=== PATIENT | female | born 1980 | race African-American/Black ===

== ENCOUNTER 2017-01-08 11:46 | Emergency (ER) | payer SELFPAY ==
[2017-01-08 11:50] VITALS: BP 141/76
--- NOTE | 2017-01-08 12:32 | RAD ---
Examination: 3 views of the right ankle History: History of right ankle pain, fall Comparison: None available Findings: The ankle mortise appears intact. There is no acute fracture identified. Mild soft tissue swelling identified lateral to the lateral malleolus. Impression: 1. No acute osseous findings. 2. Mild soft tissue swelling identified lateral to the lateral malleolus likely soft tissue injury.
--- NOTE | 2017-01-08 12:44 | PHYS DOC ---
General Chief Complaint: ANKLE PROBLEM Stated Complaint: RT FOOT PAIN Time Seen by MD: 11:54 Source: patient Exam Limitations: no limitations Problems: History of Present Illness Initial Comments Patient is a 36-year-old female who comes to the ED complaining of right ankle pain. Patient states that 2 weeks ago she rolled her ankle causing swelling and pain. She's been icing and elevating taking Tylenol and ibuprofen and her symptoms have improved greatly. 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 She says when she works it swells and the swelling is improved somewhat overnight with icing and elevating. She's frustrated that it is taking so long to get better and she is concerned that she might be injuring it further. She denies numbness tingling weakness or radiating symptoms she denies any other injuries suffered from the initial incident. Onset: other (2 weeks ago) Severity: severe Pain/Injury Location: right ankle Method of Injury: twisted Modifying Factors: worse with jarring, worse with movement, improves with rest Past Medical History Medical History: no pertinent history Surgical History: noncontributory Social History Smoker: cigarettes Alcohol: occasionally Drugs: marijuana Review of Systems Constitutional: denies chills, denies fever Respiratory: denies cough, denies shortness of breath Cardiovascular: denies chest pain, denies palpitations Gastrointestinal: denies nausea, denies vomiting Musculoskeletal: see HPI Psychiatric/Neurological: see HPI Physical Exam General Appearance: WD/WN, no apparent distress Neck: non-tender, supple Cardiovascular/Respiratory: normal peripheral pulses, no respiratory distress Back: no CVA tenderness, no vertebral tenderness Ankles: left ankle non-tender, left ankle normal inspection, left ankle normal range of motion, left ankle no evidence of injury, right ankle other (swelling noted at the lateral ankle, tenderness noted at the deltoid ligament, anterior talo-fibular ligament, and the posterior calcaneofibular ligaments. No bony tenderness no palpable deformity negative drawer extremity is neurovascularly intact.) Feet: bilateral foot non-tender, bilateral foot normal inspection, bilateral foot normal range of motion, bilateral foot no evidence of injury Neurologic/Tendon: normal sensation, normal motor functions, normal tendon functions, responds to pain, no evidence tendon injury Psychiatric: alert, oriented x 3 Skin: normal color, warm/dry Orders, Labs, Meds Right ankle: No acute osseous abnormality. Images reviewed by Dr. Padilla. I discussed the treatment plan, I discussed wearing air splint while working only. [id number] medications and ankle exercises to decrease swelling and improve range of motion given as well. Patient encouraged to stop smoking she expressed agreement and understanding of the treatment plan. Departure Time of Disposition: 12:42 Disposition: 01 HOME, SELF-CARE Diagnosis: right ankle sprain Condition: GOOD Patient Instructions: Ankle Sprain, Acute, with Phase II Rehab-JUAN Gutierrez - Routine Care for Injuries, [id number] Additional Instructions: JUAN, see handout. Wear the air splint while working to prevent further injury. [id number] Tylenol or ibuprofen as needed. Follow-up with your doctor in 2 weeks for recheck. Return to the ED with new or changing symptoms. GWYN PADILLA DO Jan 08, 2017 12:44
[2017-01-11] MEDS ORDERED: SULF1TAB24 PO (13:28)
[2017-01-11] MEDS ORDERED: MAGN400T22 PO (13:28)
== END 2017-01-08 12:50 | disposition home or self-care (01) ==
LOC: ER 11:46
DX: S93.401A Sprain of unspecified ligament of right ankle, initial encounter (principal); F17.210 Nicotine dependence, cigarettes, uncomplicated; F12.10 Cannabis abuse, uncomplicated; X58.XXXA Exposure to other specified factors, initial encounter; Y93.89 Activity, other specified; Y99.8 Other external cause status; Y92.89 Other specified places as the place of occurrence of the external cause
CPT/HCPCS: 29515; 73610; 99284-25

== ENCOUNTER 2017-01-10 12:47 | Observation (INO) | payer OTHER ==
[~2017-01-10] VITALS: Ht 157.5 cm; Wt 60.9 kg
--- NOTE | 2017-01-10 13:12 | ED.ADGEN ---
Past History Past Medical History: No Pertinent History Past Surgical History: Other Alcohol Use: Occasionally Drug Use: Marijuana Adult General Chief Complaint Chief Complaint Multiple complaints HPI HPI Patient is a 36 year old and [place] female who presents with multiple complaints. She states that she's been having left-sided flank pain that goes into her abdomen she's been having nausea vomiting, headache for the last 2 days. She states moving makes her pain in her back worse she states the headache comes and goes but is always there. She states she's never had headaches like this as a pressure sensation throughout her entire head. She states she's felt nauseated is not been able to do much eating or drinking over the last several days. She still complains of fever for the last 2 days. She states her pillow is wet when she's sleeping. Review of Systems Review of Systems Constitutional: Denies fever or chills [] Eyes: Denies change in visual acuity, redness, or eye pain [] HENT: Denies nasal congestion or sore throat [] Respiratory: Denies cough or shortness of breath [] Cardiovascular: No additional information not addressed in HPI [] GI: Denies abdominal pain, bloody stools or diarrhea, positive for nausea, vomiting. : Denies dysuria or hematuria [] Musculoskeletal: Positive for back pain, Denies joint pain [] Integument: Denies rash or skin lesions [] Neurologic: Denies headache, focal weakness or sensory changes [] Endocrine: Denies polyuria or polydipsia [] Current Medications Current Medications Current Medications Medications (Trade) Dose Ordered Sig/Pato Start Time Stop Time Status Last Admin Dose Admin Ceftriaxone Sodium 1 gm/ Sodium Chloride 50 ml @ 100 mls/hr 1X ONCE 01/10/17 15:45 01/10/17 16:14 Diphenhydramine HCl (Benadryl) 25 mg 1X ONCE 01/10/17 14:20 01/10/17 14:21 DC 01/10/17 14:31 25 MG Magnesium Sulfate/ Dextrose 100 ml @ 100 mls/hr 1X ONCE 01/10/17 15:00 01/10/17 15:59 01/10/17 14:53 100 MLS/HR Potassium Chloride 100 ml @ 100 mls/hr Q1H 01/10/17 15:00 01/10/17 18:59 01/10/17 15:51 100 MLS/HR Promethazine HCl (Phenergan) 25 mg STK-MED ONCE 01/10/17 14:13 01/10/17 14:14 DC Promethazine HCl 12.5 mg/Sodium Chloride 50.5 ml @ 101 mls/hr PRN Q6HRS PRN 01/10/17 14:30 01/10/17 14:31 101 MLS/HR Sodium Chloride 50 ml @ As Directed STK-MED ONCE 01/10/17 14:13 01/10/17 14:14 DC Allergies Allergies Allergies Coded Allergies Type Severity Reaction Last Updated Verified No Known Drug Allergies 01/10/17 No Physical Exam Physical Exam Constitutional: Well developed, well nourished, no acute distress, non-toxic appearance. [] HENT: Normocephalic, atraumatic, bilateral external ears normal, oropharynx moist, no oral exudates, nose normal. [] Eyes: PERRLA, EOMI, conjunctiva normal, no discharge. [] Neck: Normal range of motion, no tenderness, supple, no stridor. [] Cardiovascular:Heart rate regular rhythm, no murmur [] Lungs & Thorax: Bilateral breath sounds clear to auscultation [] Abdomen: Bowel sounds hypoactive, soft, tender to palpation in the left flank, no rebound or guarding, no masses, no pulsatile masses. [] Skin: Warm, dry, no erythema, no rash. [] Back: No tenderness, no CVA tenderness. [] Extremities: No tenderness, no cyanosis, no clubbing, ROM intact, no edema. [] Neurologic: Alert and oriented X 3, normal motor function, normal sensory function, no focal deficits noted. [] Psychologic: Affect normal, judgement normal, mood normal. [] Current Patient Data Vital Signs Vital Signs Date Time Temp Pulse Resp B/P (MAP) Pulse Ox O2 Delivery O2 Flow Rate FiO2 01/10/17 13:00 100.0 104 18 99 Room Air Lab Results Laboratory Tests Test 01/10/17 13:19 01/10/17 14:10 White Blood Count 22.3 x10^3/uL (4.0-11.0) H Red Blood Count 3.13 x10^6/uL (3.50-5.40) L Hemoglobin 10.6 g/dL (12.0-15.5) L Hematocrit 30.5 % (36.0-47.0) L Mean Corpuscular Volume 97 fL (79-100) Mean Corpuscular Hemoglobin 34 pg (25-35) Mean Corpuscular Hemoglobin Concent 35 g/dL (31-37) Red Cell Distribution Width 13.1 % (11.5-14.5) Platelet Count 389 x10^3/uL (140-400) Neutrophils (%) (Auto) 79 % (31-73) H Lymphocytes (%) (Auto) 5 % (24-48) L Monocytes (%) (Auto) 16 % (0-9) H Eosinophils (%) (Auto) 0 % (0-3) Basophils (%) (Auto) 1 % (0-3) Neutrophils # (Auto) 17.6 x10^3uL (1.8-7.7) H Lymphocytes # (Auto) 1.1 x10^3/uL (1.0-4.8) Monocytes # (Auto) 3.5 x10^3/uL (0.0-1.1) H Eosinophils # (Auto) 0.0 x10^3/uL (0.0-0.7) Basophils # (Auto) 0.1 x10^3/uL (0.0-0.2) Segmented Neutrophils % 83 % (35-66) H Lymphocytes % 9 % (24-48) L Monocytes % 8 % (0-10) Toxic Granulation Present Dohle Bodies Present Platelet Estimate Adequate (ADEQUATE) Platelet Clumps, EDTA Present Polychromasia Present Poikilocytosis Target Cells Present Sodium Level 131 mmol/L (136-145) L Potassium Level 2.4 mmol/L (3.5-5.1) *L Chloride Level 92 mmol/L (98-107) L Carbon Dioxide Level 31 mmol/L (21-32) Anion Gap 8 (6-14) Blood Urea Nitrogen 4 mg/dL (7-20) L Creatinine 1.0 mg/dL (0.6-1.0) Estimated GFR (Cockcroft-Gault) 76.8 Glucose Level 123 mg/dL (70-99) H Calcium Level 8.8 mg/dL (8.5-10.1) Magnesium Level 1.5 mg/dL (1.8-2.4) L Total Bilirubin 0.5 mg/dL (0.2-1.0) Direct Bilirubin 0.2 mg/dL (0.0-0.2) Aspartate Amino Transferase (AST) 18 U/L (15-37) Alanine Aminotransferase (ALT) 22 U/L (14-59) Alkaline Phosphatase 84 U/L (46-116) Creatine Kinase 67 U/L (26-192) Creatine Kinase MB (Mass) < 0.5 ng/mL (0.0-3.6) Creatine Kinase MB Relative Index 0.7 % (0-4) Total Protein 7.8 g/dL (6.4-8.2) Albumin 2.9 g/dL (3.4-5.0) L Lipase 55 U/L (73-393) L Urine Collection Type Unknown Urine Color Yellow Urine Clarity Hazy Urine pH 6.0 Urine Specific Newcomb 1.010 Urine Protein 30 mg/dl (NEG-TRACE) Urine Glucose (UA) Neg mg/dL (NEG) Urine Ketones (Stick) Neg mg/dL (NEG) Urine Blood Large (NEG) Urine Nitrite Neg (NEG) Urine Bilirubin Neg (NEG) Urine Urobilinogen Dipstick 1 mg/dL (0.2 mg/dL) Urine Leukocyte Esterase Small (NEG) Urine RBC 11-20 /HPF (0-2) Urine WBC 11-20 /HPF (0-4) Urine Squamous Epithelial Cells Mod /LPF Urine Transitional Epithelial Cells Occ /LPF Urine Bacteria Few /HPF (0-FEW) Urine Mucus Slight /LPF Urine Opiates Screen Neg (NEG) Urine Methadone Screen Neg (NEG) Urine Barbiturates Neg (NEG) Urine Phencyclidine Screen Neg (NEG) Urine Amphetamine/Methamphetamine Neg (NEG) Urine Benzodiazepines Screen Neg (NEG) Urine Cocaine Screen Neg (NEG) Urine Cannabinoids Screen Pos (NEG) Urine Ethyl Alcohol Neg (NEG) EKG EKG [] Radiology/Procedures Radiology/Procedures [address] [address] IMAGING REPORT Signed PATIENT: SILAS JIMENEZ ACCOUNT: [id number] : 1980 LOCATION: ER AGE: 36 SEX: F EXAM STATUS: REG ER ORD. PHYSICIAN: GILBERT KRAMER MD REASON: fevers PROCEDURE: CHEST PA & LATERAL Chest radiograph 01/10/2017 at 1332 hours Indication: Pain and left lower costal margin with fever. Comparison: None available Technique: PA and lateral views of the chest are provided. Findings: Cardiomediastinal silhouette is within normal limits. No pleural effusions, pulmonary vascular congestion or pneumothorax. Lungs are clear. Osseous structures are normal. Impression: No acute cardiopulmonary process. DICTATED AND SIGNED BY: OSEAS COCHRAN MD DATE: 01/10/17 1345 CC: GILBERT KRAMER MD; PCP,NO ~ [address] [address] IMAGING REPORT Signed PATIENT: SILAS JIMENEZ ACCOUNT: [id number] : 1980 LOCATION: ER AGE: 36 SEX: F EXAM STATUS: REG ER ORD. PHYSICIAN: GILBERT KRAMER MD REASON: headache PROCEDURE: CT HEAD WO CONTRAST CT of the head without contrast, 01/10/2017: History: Headache, migraines The ventricles are within normal limits in size. There is no shift of the midline structures. There is no evidence of acute intracranial hemorrhage or mass effect. IMPRESSION: No acute intracranial abnormality is detected. PQRS Compliance Statement: One or more of the following individualized dose reduction techniques were utilized for this examination: 1. Automated exposure control 2. Adjustment of the mA and/or kV according to patient size 3. Use of iterative reconstruction technique DICTATED AND SIGNED BY: KEO CHILDS MD DATE: 01/10/17 1425 CC: GILBERT KRAMER MD; PCP,NO ~ [address] [address] IMAGING REPORT Signed PATIENT: SILAS JIMENEZ ACCOUNT: [id number] : 1980 LOCATION: ER AGE: 36 SEX: F EXAM STATUS: REG ER ORD. PHYSICIAN: GILBERT KRAMER MD REASON: stone protocol PROCEDURE: CT ABDOMEN PELVIS WO CONTRAST CT abdomen/pelvis without contrast 01/10/2017 at 1529 hours Indication: Abdominal pain, history of hernia. Comparison: None available Technique: Multiple axial CT images of the abdomen and pelvis were performed without intravenous contrast. Coronal and sagittal reformats are provided. Findings: Lung bases are clear. Heart size is within normal limits. Evaluation of solid abdominal viscera is limited by the lack of intravenous contrast. The liver is normal. The spleen is normal. Bilateral adrenal glands are normal. The gallbladder is present without adjacent inflammatory changes. Pancreas is normal in appearance. The abdominal aorta is normal in course and caliber. There are no enlarged lymph nodes in the abdomen or pelvis. There is no free intraperitoneal air. Small amount free fluid is identified within the pelvis. No renal calculi are identified involving the kidneys, ureters or urinary bladder. There is no hydronephrosis. No contour deforming renal mass. Limited evaluation the bowel due to the lack of oral contrast. Small and large bowel are normal in caliber. Appendix not definitively visualized. No pericolonic inflammatory changes are present. No recurrent ventral abdominal wall hernia is present. The urinary bladder is normal in appearance. There is a 1.8 x 1.4 cm lesion in the right adnexa containing fat and calcification suspicious for a adnexal dermoid. No suspicious osseous lesions are identified. Impression: 1. There is a 1.8 x 1.4 cm lesion in the right adnexa containing fat and calcification suspicious for a dermoid lesion. Gynecologic consultation is recommended. 2. Small amount of free fluid within the pelvis is likely physiologic. PQRS Compliance Statement: One or more of the following individualized dose reduction techniques were utilized for this examination: 1. Automated exposure control 2. Adjustment of the mA and/or kV according to patient size 3. Use of iterative reconstruction technique DICTATED AND SIGNED BY: OSEAS COCHRAN MD DATE: 01/10/17 3531 CC: GILBERT KRAMER MD; PCP,NO ~ Course & Med Decision Making Course & Med Decision Making Pertinent Labs and Imaging studies reviewed. (See chart for details) She presents with subjective fevers, weakness, back/left flank pain. She has an elevated blood cell count without any bandemia. She does have urine with 11-20 whites and red blood cells. CT scan abdomen pelvis does not show any stones, she does have a cyst like lesion on the right adnexa which is not where she is tender at. We will admit to the hospitalist and start Rocephin. She has already received Phenergan/Benadryl for her nausea/headache and 1 g of mag in addition to start potassium replacement. She is in stable condition at this time. Final Impression Final Impression Leukocytosis Abdominal pain Hypokalemia Hypomagnesemia Problems: Dragon Disclaimer Dragon Disclaimer This electronic medical record was generated, in whole or in part, using a voice recognition dictation system. GILBERT KRAMER MD Jan 10, 2017 13:12
[2017-01-10 13:33] LABS: BASO # 0.1 x10^3/uL (0.0-0.2); BASO % 1 % (0-3); EOS % 0 % (0-3); HEMATOCRIT 30.5 % (36.0-47.0); HEMOGLOBIN 10.6 g/dL (12.0-15.5); LYMPH # 1.1 x10^3/uL (1.0-4.8); LYMPH % 5 % (24-48); MEAN CORPUSCULAR HEMOGLOBIN 34 pg (25-35); MEAN CORPUSCULAR HGB CONC 35 g/dL (31-37); MEAN CORPUSCULAR VOLUME 97 fL (79-100); MONO # 3.5 x10^3/uL (0.0-1.1); MONO % 16 % (0-9); NEUT # 17.6 x10^3uL (1.8-7.7); NEUT % 79 % (31-73); PLATELET COUNT 389 x10^3/uL (140-400); RED BLOOD COUNT 3.13 x10^6/uL (3.50-5.40); RED CELL DISTRIBUTION WIDTH 13.1 % (11.5-14.5); WHITE BLOOD COUNT 22.3 x10^3/uL (4.0-11.0)
--- NOTE | 2017-01-10 13:49 | RAD ---
Chest radiograph 01/10/2017 at 1332 hours Indication: Pain and left lower costal margin with fever. Comparison: None available Technique: PA and lateral views of the chest are provided. Findings: Cardiomediastinal silhouette is within normal limits. No pleural effusions, pulmonary vascular congestion or pneumothorax. Lungs are clear. Osseous structures are normal. Impression: No acute cardiopulmonary process.
[2017-01-10 13:57] LABS: ALBUMIN 2.9 g/dL (3.4-5.0); ALK PHOS 84 U/L (46-116); ALT (SGPT) 22 U/L (14-59); ANION GAP 8 (6-14); AST (SGOT) 18 U/L (15-37); BLOOD UREA NITROGEN 4 mg/dL (7-20); CALCIUM 8.8 mg/dL (8.5-10.1); CARBON DIOXIDE 31 mmol/L (21-32); CHLORIDE 92 mmol/L (98-107); CREATINE KINASE 67 U/L (26-192); DIRECT BILIRUBIN 0.2 mg/dL (0.0-0.2); GFR 76.8; GLUCOSE 123 mg/dL (70-99); LIPASE 55 U/L (73-393); SODIUM 131 mmol/L (136-145); TOTAL BILIRUBIN 0.5 mg/dL (0.2-1.0); TOTAL PROTEIN 7.8 g/dL (6.4-8.2)
[2017-01-10 13:59] LABS: POTASSIUM 2.4 mmol/L (3.5-5.1)
[2017-01-10] MEDS ORDERED: IV NORMAL SALINE 1,000ML 1,000 ML IV ONE (14:00)
[2017-01-10] MEDS ORDERED: IV NORMAL SALINE 50ML 50 ML ONE ×2 (14:13→17:18)
[2017-01-10] MEDS ORDERED: PROMETHAZINE 25 MG/ML VIAL IV ONE (14:13)
[2017-01-10] MEDS ORDERED: diphenhydrAMINE 50 MG/ML VIAL IVP ONE (14:20)
--- NOTE | 2017-01-10 14:29 | RAD ---
CT of the head without contrast, 01/10/2017: History: Headache, migraines The ventricles are within normal limits in size. There is no shift of the midline structures. There is no evidence of acute intracranial hemorrhage or mass effect. IMPRESSION: No acute intracranial abnormality is detected. PQRS Compliance Statement: One or more of the following individualized dose reduction techniques were utilized for this examination: 1. Automated exposure control 2. Adjustment of the mA and/or kV according to patient size 3. Use of iterative reconstruction technique
[2017-01-10] MEDS ORDERED: PROMETHAZINE 12.5 MG in IV NORMAL SALINE 50ML 50 ML IV PRN (14:30)
[2017-01-10 14:40] LABS: COLOR,URINE YELLOW
[2017-01-10 14:41] LABS: BACTERIA,URINE FEW /HPF (0-FEW); BILIRUBIN,URINE NEG (NEG); CLARITY,URINE HAZY; GLUCOSE,URINE NEG (NEG); NITRITE,URINE NEG (NEG); UROBILINOGEN,URINE 1 mg/dL (0.2 mg/dL)
[2017-01-10 14:42] LABS: SQUAMOUS EPITHELIAL CELL,UR MOD /LPF
[2017-01-10 14:52] LABS: AMPHETAMINE/METHAMPHETAMINE NEG (NEG); BARBITURATES NEG (NEG); BENZODIAZEPINES NEG (NEG); CANNABINOIDS POS (NEG); COCAINE NEG (NEG); METHADONE NEG (NEG); OPIATES NEG (NEG); PHENCYCLIDINE NEG (NEG)
[2017-01-10] MEDS ORDERED: MAGNESIUM SULFATE 1GM 100 ML IV ONE (15:00)
[2017-01-10 15:08] LABS: % LYMPHS 9 % (24-48); % MONOS 8 % (0-10); % SEGS 83 % (35-66)
[2017-01-10 15:09] LABS: PLATELET CLUMP PRESENT
[2017-01-10 15:10] LABS: PLT ESTIMATE ADEQUATE (ADEQUATE); TARGET CELLS PRESENT
[2017-01-10 15:12] LABS: TOXIC GRANULATION PRESENT
[2017-01-10 15:13] LABS: POLYCHROMASIA PRESENT
--- NOTE | 2017-01-10 15:49 | RAD ---
CT abdomen/pelvis without contrast 01/10/2017 at 1529 hours Indication: Abdominal pain, history of hernia. Comparison: None available Technique: Multiple axial CT images of the abdomen and pelvis were performed without intravenous contrast. Coronal and sagittal reformats are provided. Findings: Lung bases are clear. Heart size is within normal limits. Evaluation of solid abdominal viscera is limited by the lack of intravenous contrast. The liver is normal. The spleen is normal. Bilateral adrenal glands are normal. The gallbladder is present without adjacent inflammatory changes. Pancreas is normal in appearance. The abdominal aorta is normal in course and caliber. There are no enlarged lymph nodes in the abdomen or pelvis. There is no free intraperitoneal air. Small amount free fluid is identified within the pelvis. No renal calculi are identified involving the kidneys, ureters or urinary bladder. There is no hydronephrosis. No contour deforming renal mass. Limited evaluation the bowel due to the lack of oral contrast. Small and large bowel are normal in caliber. Appendix not definitively visualized. No pericolonic inflammatory changes are present. No recurrent ventral abdominal wall hernia is present. The urinary bladder is normal in appearance. There is a 1.8 x 1.4 cm lesion in the right adnexa containing fat and calcification suspicious for a adnexal dermoid. No suspicious osseous lesions are identified. Impression: 1. There is a 1.8 x 1.4 cm lesion in the right adnexa containing fat and calcification suspicious for a dermoid lesion. Gynecologic consultation is recommended. 2. Small amount of free fluid within the pelvis is likely physiologic. PQRS Compliance Statement: One or more of the following individualized dose reduction techniques were utilized for this examination: 1. Automated exposure control 2. Adjustment of the mA and/or kV according to patient size 3. Use of iterative reconstruction technique
[2017-01-10] MEDS: POTASSIUM CHLORIDE 10MEQ 100 ML IV SCH ×5 (15:51→18:49)
[2017-01-10] MEDS ORDERED: ONDANSETRON PF 4 MG/2 ML VIAL. IV PRN (16:00)
[2017-01-10] MEDS ORDERED: cefTRIAXone SODIUM 1 GM VIAL IV ONE (17:18)
[2017-01-10 17:50] VITALS: BP 122/70
[2017-01-10] MEDS ORDERED: diphenhydrAMINE HCL 25 MG CAPSULE PO PRN (18:15)
[2017-01-10] MEDS: POTASSIUM CL 40MEQ IN 0.9%NACL 1,000 ML IV SCH ×2 (18:30→20:35)
[2017-01-10] MEDS ORDERED: POTASSIUM CHLORIDE 10 MEQ CAPSULE.ER. PO ONE (18:45)
[2017-01-10] MEDS ORDERED: ACETAMINOPHEN 650 MG/20.3 ML SOLUTION. PO PRN (19:00)
[2017-01-10 19:54] VITALS: BP 101/80
[2017-01-10] MEDS: POTASSIUM CHLORIDE 10 MEQ TABLET.ER. PO SCH ×2 (20:32→22:37)
[2017-01-10 21:11] VITALS: BP 117/57
[2017-01-10 22:41] VITALS: BP 117/62
[2017-01-10 23:27] LABS: CALCIUM 8.2 mg/dL (8.5-10.1); GFR 76.8; POTASSIUM 3.1 mmol/L (3.5-5.1)
[2017-01-11] VITALS (10 sets, daily range): BP systolic 93–114; BP diastolic 54–85
[2017-01-11] MEDS: POTASSIUM CL 40MEQ IN 0.9%NACL 1,000 ML IV SCH (04:18)
--- NOTE | 2017-01-11 04:19 | ACF ---
Admission Criteria Forms HYPONATREMIA; HYPERNATREMIA; HYPOKALEMIA; HYPERKALEMIA; HYPOCALCEMIA; HYPERCALCEMIA Clinical Indications for Inpatient Care (Place 'X' for any and all applicable criteria): Ongoing inpatient care may be indicated for ANY ONE of the following [G](1)(2)(3 )(5): [ ]I. Hyponatremia with ANY ONE of the following: [ ]a) Sodium less than 130 mEq/L (mmol/L) (new) (6)(22) [ ]b) Sodium less than 135 mEq/L (mmol/L) with ANY ONE of the following: [ ]i) Severe medical etiology requiring inpatient management (eg, heart failure, hypovolemia) [ ]ii) Altered mental status [ ]iii) Seizures [ ]II. Hypernatremia with ANY ONE of the following: [ ]a) Sodium greater than 155 mEq/L (mmol/L) [ ]b) Sodium greater than 150 mEq/L (mmol/L) with ANY ONE of the following: [ ] i) Altered mental status [ ]ii) Seizures [ ]iii) Severe medical etiology (eg, hypovolemia, diabetes insipidus) [ ]iv) Severe weakness [ ]v) Severe medical etiology (eg, hemolysis, infection, drug overdose) [ X]III. Hypokalemia with ANY ONE of the following: [X ]a) Potassium less than 2.5 mEq/L (mmol/L) despite outpatient and emergency treatment [ ]b) Potassium less than 3.0 mEq/L (mmol/L) with ANY ONE of the following: [ ]i) Weakness [ ]ii) Cardiac abnormality (eg, arrhythmia, conduction disturbance) [ ]iii) Cardiac ischemia [ ]iv) Ileus [ ]v) Ongoing medical cause requiring inpatient management. ( e.g., acute renal wasting, SIADH) [ ]vi) Other severe symptoms [ ] IV. Hyperkalemia with ANY ONE of the following: [ ]a) Potassium greater than 6.5 mEq/L (mmol/L) [ ]b) Potassium greater than 5 mEq/L (mmol/L) with ANY ONE of the following: [ ]i) Severe ECG findings [H] [ ]ii) Acute worsening of renal failure (creatinine greater than 2.5 mg/dL (221 micromoles/L) or significant elevation for age and size) [ ] V. Hypocalcemia with ANY ONE of the following: [ ]a) Calcium less than 7 mg/dL (1.75 mmol/L) despite outpatient and emergency treatment(19) [ ]b) Calcium less than 8 mg/dL (2 mmol/L) with significant symptoms or findings; examples include: [ ]i) Cardiac abnormality (eg, arrhythmia or conduction disturbance) [ ]ii) Altered mental status [ ]iii) Seizures [ ]iv) Breathing difficulty [ ]v) Muscle spasms [ ]. Hypercalcemia with ANY ONE of the following: [ ]a) Calcium greater than 14 mg/dL (3.5 mmol/L) [ ]b) Calcium greater than 12 mg/dL (3 mmol/L) with ANY ONE of the following: [ ]i) Significant dehydration or hypovolemia as indicated by ANY ONE of the following(2): [ ]1. Clinically significant dehydration as indicated by ANY ONE of the following: [ ]A. Acute loss of weight from baseline (5% of body weight in adults, 9% in pediatric patients) [ ]B. Hemodynamic instability [ ]C. Acute renal failure [ ]D. Serum sodium greater than 150 mEq/L (mmol/L) [ ]2) Dehydration that is persistent indicated by ALL of the following: [ ]A. Oral rehydration therapy not tolerated or insufficient to adequately correct dehydration [ ]B. Appropriate intravenous treatment (eg, fluids ) does not readily correct dehydration ie, after 12 to 24 hours of treatment) [ ]ii) Significant symptoms or findings; examples include: [ ]1) Altered mental status [ ]2) Cardiac abnormality (eg, arrhythmia, conduction disturbance) [ ]3) Cardiac abnormality (eg, arrhythmia, conduction disturbance) The original [facility] content created by [facility] has been revised. The portions of the content which have been revised are identified through the use of italic text or in bold, and [facility] has neither reviewed nor approved the modified material. All other unmodified content is copyright [facility] [employer] Please see references footnoted in the original [facility] [employer] edition 2016 Admission Criteria Met?: Yes PEG DAVID Jan 11, 2017 04:19
[2017-01-11 05:57] LABS: BASO # 0.1 x10^3/uL (0.0-0.2); BASO % 0 % (0-3); EOS # 0.1 x10^3/uL (0.0-0.7); EOS % 0 % (0-3); HEMATOCRIT 32.2 % (36.0-47.0); HEMOGLOBIN 10.9 g/dL (12.0-15.5); LYMPH # 1.2 x10^3/uL (1.0-4.8); LYMPH % 7 % (24-48); MEAN CORPUSCULAR HEMOGLOBIN 34 pg (25-35); MEAN CORPUSCULAR HGB CONC 34 g/dL (31-37); MEAN CORPUSCULAR VOLUME 100 fL (79-100); MONO # 2.7 x10^3/uL (0.0-1.1); MONO % 15 % (0-9); NEUT # 13.7 x10^3uL (1.8-7.7); NEUT % 77 % (31-73); PLATELET COUNT 385 x10^3/uL (140-400); RED BLOOD COUNT 3.22 x10^6/uL (3.50-5.40); RED CELL DISTRIBUTION WIDTH 13.3 % (11.5-14.5); WHITE BLOOD COUNT 17.8 x10^3/uL (4.0-11.0)
[2017-01-11 06:07] LABS: CALCIUM 8.1 mg/dL (8.5-10.1); GFR 76.8; POTASSIUM 4.3 mmol/L (3.5-5.1)
[2017-01-11] MEDS ORDERED: ACETAMINOPHEN 650 MG/20.3 ML SOLUTION. PO PRN (09:45)
[2017-01-11] MEDS: POTASSIUM CHLORIDE 10 MEQ TABLET.ER. PO SCH (09:46)
[2017-01-11] MEDS ORDERED: ACETAMINOPHEN 325 MG TABLET PO PRN (10:00)
[2017-01-11] MEDS ORDERED: ACETAMINOPHEN 325 MG TABLET PO ONE (10:21)
[2017-01-11 13:24] LABS: FREE T4 1.35 ng/dL (0.76-1.46); THYROID STIM HORMONE (TSH) 0.369 uIU/mL (0.358-3.740)
[2017-01-11] MEDS ORDERED: MAGN400T22 PO (13:28)
[2017-01-11] MEDS ORDERED: SULF1TAB24 PO (13:28)
--- NOTE | 2017-01-11 14:19 | PDOC3 ---
Discharge Summary Visit Information Date of Admission: Jan 10, 2017 Date of Discharge: Jan 11, 2017 Final Diagnosis Problems Medical Problems: (1) Hypokalemia (2) hypomagnesemia #3 sepsis with urinary tract infection and mild PYELONEPHRITIS #4 right adnexal dermoid cyst incidental finding #5 tobacco use disorder #6 cannabis use #7 bipolar disorder stable Status: Acute Problems: Brief Hospital Course Allergies Allergies Coded Allergies Type Severity Reaction Last Updated Verified No Known Drug Allergies 01/10/17 No Vital Signs Vital Signs Date Time Temp Pulse Resp B/P (MAP) Pulse Ox O2 Delivery O2 Flow Rate FiO2 01/11/17 13:15 80 01/11/17 12:10 18 112/59 (76) 100 01/11/17 10:07 98.5 Room Air Lab Results Laboratory Tests Test 01/10/17 13:19 01/10/17 14:10 01/10/17 23:00 01/11/17 05:40 White Blood Count 22.3 x10^3/uL (4.0-11.0) 17.8 x10^3/uL (4.0-11.0) Red Blood Count 3.13 x10^6/uL (3.50-5.40) 3.22 x10^6/uL (3.50-5.40) Hemoglobin 10.6 g/dL (12.0-15.5) 10.9 g/dL (12.0-15.5) Hematocrit 30.5 % (36.0-47.0) 32.2 % (36.0-47.0) Mean Corpuscular Volume 97 fL (79-100) 100 fL (79-100) Mean Corpuscular Hemoglobin 34 pg (25-35) 34 pg (25-35) Mean Corpuscular Hemoglobin Concent 35 g/dL (31-37) 34 g/dL (31-37) Red Cell Distribution Width 13.1 % (11.5-14.5) 13.3 % (11.5-14.5) Platelet Count 389 x10^3/uL (140-400) 385 x10^3/uL (140-400) Neutrophils (%) (Auto) 79 % (31-73) 77 % (31-73) Lymphocytes (%) (Auto) 5 % (24-48) 7 % (24-48) Monocytes (%) (Auto) 16 % (0-9) 15 % (0-9) Eosinophils (%) (Auto) 0 % (0-3) 0 % (0-3) Basophils (%) (Auto) 1 % (0-3) 0 % (0-3) Neutrophils # (Auto) 17.6 x10^3uL (1.8-7.7) 13.7 x10^3uL (1.8-7.7) Lymphocytes # (Auto) 1.1 x10^3/uL (1.0-4.8) 1.2 x10^3/uL (1.0-4.8) Monocytes # (Auto) 3.5 x10^3/uL (0.0-1.1) 2.7 x10^3/uL (0.0-1.1) Eosinophils # (Auto) 0.0 x10^3/uL (0.0-0.7) 0.1 x10^3/uL (0.0-0.7) Basophils # (Auto) 0.1 x10^3/uL (0.0-0.2) 0.1 x10^3/uL (0.0-0.2) Segmented Neutrophils % 83 % (35-66) Lymphocytes % 9 % (24-48) Monocytes % 8 % (0-10) Toxic Granulation Present Dohle Bodies Present Platelet Estimate Adequate (ADEQUATE) Platelet Clumps, EDTA Present Polychromasia Present Poikilocytosis Target Cells Present Sodium Level 131 mmol/L (136-145) 133 mmol/L (136-145) 140 mmol/L (136-145) Potassium Level 2.4 mmol/L (3.5-5.1) 3.1 mmol/L (3.5-5.1) 4.3 mmol/L (3.5-5.1) Chloride Level 92 mmol/L (98-107) 97 mmol/L (98-107) 104 mmol/L (98-107) Carbon Dioxide Level 31 mmol/L (21-32) 29 mmol/L (21-32) 28 mmol/L (21-32) Anion Gap 8 (6-14) 7 (6-14) 8 (6-14) Blood Urea Nitrogen 4 mg/dL (7-20) 4 mg/dL (7-20) 6 mg/dL (7-20) Creatinine 1.0 mg/dL (0.6-1.0) 1.0 mg/dL (0.6-1.0) 1.0 mg/dL (0.6-1.0) Estimated GFR (Cockcroft-Gault) 76.8 76.8 76.8 Glucose Level 123 mg/dL (70-99) 151 mg/dL (70-99) 99 mg/dL (70-99) Calcium Level 8.8 mg/dL (8.5-10.1) 8.2 mg/dL (8.5-10.1) 8.1 mg/dL (8.5-10.1) Magnesium Level 1.5 mg/dL (1.8-2.4) 2.3 mg/dL (1.8-2.4) Total Bilirubin 0.5 mg/dL (0.2-1.0) Direct Bilirubin 0.2 mg/dL (0.0-0.2) Aspartate Amino Transf (AST/SGOT) 18 U/L (15-37) Alanine Aminotransferase (ALT/SGPT) 22 U/L (14-59) Alkaline Phosphatase 84 U/L (46-116) Creatine Kinase 67 U/L (26-192) Creatine Kinase MB (Mass) < 0.5 ng/mL (0.0-3.6) Creatine Kinase MB Relative Index 0.7 % (0-4) Total Protein 7.8 g/dL (6.4-8.2) Albumin 2.9 g/dL (3.4-5.0) Lipase 55 U/L (73-393) Thyroid Stimulating Hormone (TSH) 0.369 uIU/mL (0.358-3.740) Free Thyroxine 1.35 ng/dL (0.76-1.46) Urine Collection Type Unknown Urine Color Yellow Urine Clarity Hazy Urine pH 6.0 Urine Specific Gays 1.010 Urine Protein 30 mg/dl (NEG-TRACE) Urine Glucose (UA) Neg mg/dL (NEG) Urine Ketones (Stick) Neg mg/dL (NEG) Urine Blood Large (NEG) Urine Nitrite Neg (NEG) Urine Bilirubin Neg (NEG) Urine Urobilinogen Dipstick 1 mg/dL (0.2 mg/dL) Urine Leukocyte Esterase Small (NEG) Urine RBC 11-20 /HPF (0-2) Urine WBC 11-20 /HPF (0-4) Urine Squamous Epithelial Cells Mod /LPF Urine Transitional Epithelial Cells Occ /LPF Urine Bacteria Few /HPF (0-FEW) Urine Mucus Slight /LPF Urine Opiates Screen Neg (NEG) Urine Methadone Screen Neg (NEG) Urine Barbiturates Neg (NEG) Urine Phencyclidine Screen Neg (NEG) Urine Amphetamine/Methamphetamine Neg (NEG) Urine Benzodiazepines Screen Neg (NEG) Urine Cocaine Screen Neg (NEG) Urine Cannabinoids Screen Pos (NEG) Urine Ethyl Alcohol Neg (NEG) Brief Hospital Course Ms. Perez is a 36 old female who presented with generally not feeling well she had some left flank pain, felt feverish and had a couple of days of dysuria and urgency which actually resolved today. She was admitted yesterday evening, treated with IV fluids, received 2 doses of ceftriaxone, and felt considerably better. 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 Her potassium and her magnesium were also replaced during this hospitalization she will also be sent home on potassium and magnesium as well as Septra. *Medical history bipolar 1 disorder-takes no med Habits: smokes 1ppd and smokes some weed. Ocassional alcohol. Has a significant other Allergies:none Physical exam: 36-year-old in no acute distress. Her eyes are clear, nose is patent, throat is clear. Neck was supple without adenopathy. Lungs are clear to auscultation Cardiovascular regular rhythm and rate Abdomen was soft nontender to palpation bowel sounds are positive no masses she does have mild left flank tenderness with palpation Extremities without edema Neurologically she is intact Labs were reviewed-noted leukocytosis and urine with evidence of a UTI. Noted low potassium of 2.2, and low magnesium as well Discharge Information Condition at Discharge: Improved, Stable Follow Up: Weeks (ONE WEEK FOR LABS, NEED TO ESTABLISH CARE WITH A PHYSICIAN AND SEE A PEER EDUCATOR) Dischare Medications Current Medications Promethazine HCl 12.5 mg/Sodium Chloride 50.5 ml @ 101 mls/hr PRN Q6HRS PRN IV NAUSEA/VOMITING Last administered on 01/10/17 14:31; Start 01/10/17 at 14:30 Diphenhydramine HCl (Benadryl) 25 mg 1X ONCE IVP Last administered on 14:31; Start 01/10/17 at 14:20; Stop 01/10/17 at 14:21; Status DC Sodium Chloride 1,000 ml @ 1,000 mls/hr 1X ONCE IV Last administered on 14:31; Start 01/10/17 at 14:00; Stop 01/10/17 at 14:59; Status DC Promethazine HCl (Phenergan) 25 mg STK-MED ONCE IV ; Start 01/10/17 at 14:13; Stop 01/10/17 at 14:14; Status DC Sodium Chloride 50 ml @ As Directed STK-MED ONCE .ROUTE ; Start 01/10/17 at 14: 13; Stop 01/10/17 at 14:14; Status DC Potassium Chloride 100 ml @ 100 mls/hr Q1H IV Last administered on 01/10/17 15:51; Start 01/10/17 at 15:00; Stop 01/10/17 at 18:59; Status DC Magnesium Sulfate/ Dextrose 100 ml @ 100 mls/hr 1X ONCE IV Last administered on 01/10/17 14:53; Start 01/10/17 at 15:00; Stop 01/10/17 at 15:59; Status DC Ceftriaxone Sodium 1 gm/ Sodium Chloride 50 ml @ 100 mls/hr 1X ONCE IV Last administered on 01/10/17 17:30; Start 01/10/17 at 15:45; Stop 01/10/17 at 16:14 ; Status DC Ondansetron HCl (Zofran) 4 mg PRN Q4HRS PRN IV NAUSEA/VOMITING; Start 01/10/17 at 16:00; Stop 01/11/17 at 15:59 Sodium Chloride 50 ml @ As Directed STK-MED ONCE .ROUTE ; Start 01/10/17 at 17: 18; Stop 01/10/17 at 17:19; Status DC Ceftriaxone Sodium (Rocephin) 1 gm STK-MED ONCE IV ; Start 01/10/17 at 17:18; Stop 01/10/17 at 17:19; Status DC Diphenhydramine HCl (Benadryl) 25 mg PRN Q6HRS PRN PO SEE COMMENTS; Start 01/10 at 18:15 Potassium Chloride (Micro-K) 40 meq 1X ONCE PO Last administered on 01/10/17 20:30; Start 01/10/17 at 18:45; Stop 01/10/17 at 18:46; Status DC Potassium Chloride (Klor-Con) 40 meq BID PO Last administered on 01/11/17 09: 46; Start 01/10/17 at 21:00 Potassium Chloride/Sodium Chloride 1,000 ml @ 125 mls/hr Q8H IV Last administered on 01/11/17 04:18; Start 01/10/17 at 18:30 Ceftriaxone Sodium 1 gm/ Sodium Chloride 50 ml @ 100 mls/hr Q24H IV ; Start 06/18 at 17:00; Stop 01/11/17 at 17:00; Status DC Acetaminophen (Tylenol) 650 mg PRN Q6HRS PRN PO PAIN / TEMP Last administered on 01/10/17 22:44; Start 01/10/17 at 19:00; Stop 01/11/17 at 10:21; Status DC Acetaminophen (Tylenol) 650 mg Q6HRS PRN PO HEADACHE; Start 01/11/17 at 09:45 Acetaminophen (Tylenol) 650 mg Q6HRS PRN PO PAIN Last administered on 10:24; Start 01/11/17 at 10:00 Acetaminophen (Tylenol) 325 mg STK-MED ONCE PO ; Start 01/11/17 at 10:21; Stop 01/11/17 at 10:22; Status DC Ceftriaxone Sodium 1 gm/ Sodium Chloride 50 ml @ 100 mls/hr 1X ONCE IV Last administered on 01/11/17 13:04; Start 01/11/17 at 13:00; Stop 01/11/17 at 13:29 ; Status DC Active Scripts Active Bactrim Ds Tablet (Sulfamethoxazole/Trimethoprim) 1 Each Tablet 1 Tab PO BID Mag-Oxide (Magnesium Oxide) 400 Mg Tablet 1 Tab PO BID Patient Instructions Patient Instuctions SEE DISCHARGE ON [facility] SILVANA PAULINO DO Jan 11, 2017 14:19
== END 2017-01-11 14:10 | disposition home or self-care (01) ==
LOC: ER 12:47 → ICU 16:00 → ER 17:40
PROVIDERS: ADMIT Family Medicine; ATTEND Family Medicine
DX: E87.6 Hypokalemia (principal); E83.42 Hypomagnesemia; D28.7 Benign neoplasm of other specified female genital organs; N39.0 Urinary tract infection, site not specified; N12 Tubulo-interstitial nephritis, not specified as acute or chronic; F17.210 Nicotine dependence, cigarettes, uncomplicated; F12.90 Cannabis use, unspecified, uncomplicated; F31.9 Bipolar disorder, unspecified
CPT/HCPCS: 36415; 70450; 71020; 74176; 80048; 80076; 81001; 82553; 83690; 83735; 84439; 84443; 85007; 85027; 87086; 87641; 96365; 96366; 96367; 96368; 96375; 99285; G0378; G0481; J0696; J1200; J2550; J3475; J3480; G0379; J7030

== ENCOUNTER 2017-02-06 15:27 | Emergency (ER) | payer OTHER ==
[~2017-02-06] VITALS: Ht 157.5 cm; Wt 59.0 kg
[~2017-02-06 15:27] MED LIST: MAGN400T22 PO; SULF1TAB24 PO
--- NOTE | 2017-02-06 16:29 | RAD ---
Three-view left hand radiographs 02/06/2017 Clinical history: Puncture wound to the left hand. PA, lateral and oblique digital radiographs of the left hand were obtained. No fracture or dislocation of the left hand is seen. No radiopaque foreign body is noted. Impression: No fracture or radiopaque foreign body is seen involving the left hand.
[2017-02-06] MEDS ORDERED: DIPHTH,PERTUSS(ACELL),TET TOX 0.5 ML DISP.SYRIN. VAX IM ONE (16:30)
[2017-02-06 16:40] VITALS: BP 116/65
--- NOTE | 2017-02-06 16:51 | PHYS DOC ---
Past History Past Medical History: No Pertinent History Past Surgical History: Other Alcohol Use: Occasionally Drug Use: Marijuana Adult General Chief Complaint Chief Complaint: HAND PROBLEM HPI HPI 36-year-old female presenting to the emergency department today with left hand injury. She reports working today and accidentally injuring her left hand with a screwdriver. She sustained a minor cut to her volar aspect of her hand. This happened today. She has mild pain that is nonradiating intermittent and without alleviating factors. She denies any other injury. Review of systems is negative for chest pain shortness of breath or any other injuries. All other review of systems is negative unless otherwise noted in history of present illness. ED course: 36-year-old female presenting to the emergency department after sustaining minor injury to her left hand. Pertinent evaluation of the hand shows a 0.5 laceration that is superficial to the left hand. Does not require sutures. Neurovascularly intact. No evidence of tendon injury. Superficial. The wound is cleaned out. Tetanus updated and the patient was subsequent discharged home. Review of Systems Review of Systems SEE ABOVE. Current Medications Current Medications Current Medications Medications (Trade) Dose Ordered Sig/Pato Start Time Stop Time Status Last Admin Dose Admin Diphtheria/ Tetanus/Acell Pertussis (Boostrix) 0.5 ml ONCE ONCE 02/06/17 16:30 02/06/17 16:31 DC 02/06/17 16:30 0.5 ML Allergies Allergies Allergies Coded Allergies Type Severity Reaction Last Updated Verified No Known Drug Allergies 01/10/17 No Physical Exam Physical Exam Constitutional: Well developed, well nourished, no acute distress, non-toxic appearance. [] HENT: Normocephalic, atraumatic, bilateral external ears normal, oropharynx moist, no oral exudates, nose normal. [] Eyes: PERRLA, EOMI, conjunctiva normal, no discharge. [] Neck: Normal range of motion, no tenderness, supple, no stridor. [] Cardiovascular:Heart rate regular rhythm, no murmur [] Lungs & Thorax: Bilateral breath sounds clear to auscultation [] Abdomen: Bowel sounds normal, soft, no tenderness, no masses, no pulsatile masses. [] Skin: Warm, dry, no erythema, no rash. [] Back: No tenderness, no CVA tenderness. [] Extremities: No tenderness, no cyanosis, no clubbing, ROM intact, no edema. [] Neurologic: Alert and oriented X 3, normal motor function, normal sensory function, no focal deficits noted. [] Psychologic: Affect normal, judgement normal, mood normal. [] Current Patient Data Lab Results Laboratory Tests Test 02/06/17 16:08 POC Urine HCG, Qualitative hcg negative (Negative) EKG EKG [] Radiology/Procedures Radiology/Procedures [] Course & Med Decision Making Course & Med Decision Making Pertinent Labs and Imaging studies reviewed. (See chart for details) [] Dragon Disclaimer Dragon Disclaimer This chart was dictated in whole or in part using Voice Recognition software in a busy, high-work load, and often noisy Emergency Department environment. It may contain unintended and wholly unrecognized errors or omissions. Departure Departure: Impression: Primary Impression: Hand injury Disposition: HOME, SELF-CARE Condition: STABLE Referrals: PCP,NO (PCP) Patient Instructions: Hand Injuries Additional Instructions: Thank you for allowing us to participate in your care today. Followup with your primary care physician in 3 days if your symptoms do not improve. Call your Primary Doctor tomorrow and inform them of your visit today. If you do not have a primary care provider you can ask for a list of our primary care providers. Return to the emergency department you have any new or concerning findings. This should be evaluated by the primary care physician and any necessary consulting services for continued management within a few days after discharge. Return to emergency room if you have any new or concerning symptoms including but not limited to fever, chills, nausea, vomiting, intractable pain, any new rashes, chest pain, shortness of air, uncontrolled bleeding, difficulty breathing, and/or vision loss. DAMIR CASEY MD Feb 06, 2017 16:51
== END 2017-02-06 17:00 | disposition home or self-care (01) ==
LOC: ER 15:27
DX: S69.92XA Unspecified injury of left wrist, hand and finger(s), initial encounter (principal); F12.10 Cannabis abuse, uncomplicated; W27.0XXA Contact with workbench tool, initial encounter; Y93.89 Activity, other specified; Y99.8 Other external cause status; Y92.89 Other specified places as the place of occurrence of the external cause
CPT/HCPCS: 73130; 81025; 90471; 90715; 99284-25

== ENCOUNTER 2017-08-05 08:59 | Emergency (ER) | payer OTHER ==
[~2017-08-05] VITALS: Ht 157.5 cm; Wt 61.2 kg
[2017-08-05 09:10] VITALS: BP 131/73
[2017-08-05] MEDS ORDERED: KETOROLAC 30 MG/ML VIAL. IV ONE (09:30)
--- NOTE | 2017-08-05 09:33 | PHYS DOC ---
General Chief Complaint: ABDOMINAL PAIN Stated Complaint: U/R ABDOM PAIN Time Seen by MD: 09:17 Source: patient Exam Limitations: no limitations Problems: History of Present Illness Initial Comments Patient is a 37-year-old female who comes to the ED complaining of right upper quadrant abdominal/right lower chest and rib pain. Patient states that she had a ventral hernia repair in the past. She's had intermittent right upper quadrant abdominal pains for weeks however since Monday the pain has greatly intensified. 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 She denies any known trauma or other injury. Denies any relationship to by mouth intake and she's had no nausea or vomiting. She does feel as if she is swollen below her right lower rib cage, states it hurts to move in any direction and that she cannot tolerate lying on her abdomen only on her back. Pain is described as sharp and stabbing the severe in intensity and worse with movement and palpation and certain positions better with rest. Other than the pain and sensation of swelling denies other complaints states she is normally healthy and takes no daily medications. On my evaluation the patient is in no apparent distress however does moves very gingerly when asked during exam. She has exquisite tenderness at the right upper quadrant/positive Barraza sign although no other symptoms consistent with gallbladder disease. Vital signs are stable. Denies possibility of she is here with her girlfriend. Lab and ultrasound evaluation initiated Toradol intravenously for pain. Timing/Duration: other Severity: severe Modifying Factors: worse with movement, improves with rest Associated Symptoms: other Allergies: Coded Allergies: No Known Drug Allergies (Unverified , 01/10/17) Past Medical History Medical History: no pertinent history Surgical History: other (ventral hernia repair) Social History Smoker: non-smoker Alcohol: none Drugs: marijuana Review of Systems Constitutional: denies chills, denies diaphoresis, denies fever, denies malaise Respiratory: denies cough, denies shortness of breath, denies wheezing Cardiovascular: see HPI, denies palpitations, denies syncope Gastrointestinal: see HPI, denies constipation, denies diarrhea, denies nausea , denies vomiting Genitourinary: denies discharge, denies dysuria, denies frequency, denies hematuria Musculoskeletal: denies back pain, denies joint swelling, denies neck pain Skin: denies change in color, denies dryness, denies rash Psychiatric/Neurological: denies headache, denies numbness, denies paresthesia Physical Exam General Appearance: WD/WN, no apparent distress Eyes: bilateral eye normal inspection, bilateral eye PERRL, bilateral eye EOMI Ear, Nose, Throat: hearing grossly normal, normal ENT inspection, normal pharynx Neck: non-tender, supple Respiratory: normal breath sounds, no respiratory distress Cardiovascular: normal peripheral pulses, regular rate, rhythm Gastrointestinal: soft (nondistended, exquisite right upper quadrant tenderness to palpation with guarding no rebound, no palpable masses bowel sounds are normal) Rectal: deferred Back: no CVA tenderness, no vertebral tenderness Extremities: non-tender, normal inspection 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 PHYSICIAN: DARSHANA SANTOS DO REASON: R lower cp PROCEDURE: CHEST PA & LATERAL PROCEDURE: CHEST PA LATERAL CLINICAL INDICATION: R lower cp COMPARISON: 01/10/2017 FINDINGS: No pneumothorax identified. Cardiac and mediastinal contours unremarkable. No pulmonary consolidation or acute airspace disease. No acute osseous abnormalities identified. IMPRESSION: No pulmonary consolidation or acute airspace disease. DICTATED AND SIGNED BY: KARINA JUAREZ DO DATE: 08/05/17 0954 CC: PCP,NO; DARSHANA SANTOS DO ~ PATIENT: SILAS JIMENEZ ACCOUNT: [id number] : 1980 LOCATION: ER AGE: 37 SEX: F EXAM STATUS: REG ER ORD. PHYSICIAN: DARSHANA SANTOS DO REASON: RUQ/epigastric pain, h/o ventral hx repair PROCEDURE: ABDOMEN LTD Indication: Right upper quadrant pain for 5 days. Technique: Grayscale, color Doppler and spectral waveform images of the abdomen obtained. Comparison: CT from 01/10/2017 Findings: Visualized pancreas is within normal limits. IVC is patent. No gallstones. No pericholecystic fluid or gallbladder wall thickening. Portal vein is patent with hepatopedal flow. CBD measures 3 mm and is within normal limits. Liver measures 15 cm in cranial, dimension without focal lesion and is normal in echogenicity. Right kidney measures 10 cm in length without hydronephrosis. Impression: No cholelithiasis or sonographic evidence of acute cholecystitis. DICTATED AND SIGNED BY: KARINA JUAREZ DO DATE: 08/05/17 1034 CC: PCP,NO; DARSHANA SANTOS DO ~ I discussed lab and imaging findings extensively with the patient, no emergent process noted. Symptoms are likely musculoskeletal. I discussed activity modification as well as [id number] prescription medications. I discussed close PCP follow-up. I discussed signs and symptoms to monitor as well as indications for urgent return to the department. Patient's questions were answered she expressed agreement and understanding with treatment plan. Departure Time of Disposition: 11:28 Disposition: 01 HOME, SELF-CARE Diagnosis: abdominal pain nonspecific Condition: GOOD Patient Instructions: Abdominal Pain (Nonspecific) Additional Instructions: Off work through Monday. Keep activity to "pain free." Prescription: Irving 5 mg quantity 15 for breakthrough pain. No driving or operating machinery while taking Irving, increase fluids and take [id number] stool softeners to avoid constipation. Take with food to avoid nausea. [id number] ibuprofen for baseline discomfort. Follow-up with your doctor later this week for recheck and further outpatient evaluation as indicated. Return to ED with new or changing symptoms. DARSHANA SANTOS DO Aug 05, 2017 09:33
[2017-08-05 09:56] LABS: BASO # 0.1 x10^3/uL (0.0-0.2); BASO % 1 % (0-3); EOS # 0.2 x10^3/uL (0.0-0.7); EOS % 4 % (0-3); HEMATOCRIT 35.6 % (36.0-47.0); HEMOGLOBIN 12.4 g/dL (12.0-15.5); LYMPH # 1.6 x10^3/uL (1.0-4.8); LYMPH % 32 % (24-48); MEAN CORPUSCULAR HEMOGLOBIN 35 pg (25-35); MEAN CORPUSCULAR HGB CONC 35 g/dL (31-37); MEAN CORPUSCULAR VOLUME 100 fL (79-100); MONO # 0.5 x10^3/uL (0.0-1.1); MONO % 10 % (0-9); NEUT # 2.8 x10^3uL (1.8-7.7); NEUT % 54 % (31-73); PLATELET COUNT 319 x10^3/uL (140-400); RED BLOOD COUNT 3.54 x10^6/uL (3.50-5.40); RED CELL DISTRIBUTION WIDTH 13.6 % (11.5-14.5); WHITE BLOOD COUNT 5.1 x10^3/uL (4.0-11.0)
--- NOTE | 2017-08-05 09:57 | RAD ---
PROCEDURE: CHEST PA LATERAL CLINICAL INDICATION: R lower cp COMPARISON: 01/10/2017 FINDINGS: No pneumothorax identified. Cardiac and mediastinal contours unremarkable. No pulmonary consolidation or acute airspace disease. No acute osseous abnormalities identified. IMPRESSION: No pulmonary consolidation or acute airspace disease.
[2017-08-05 10:14] LABS: ALBUMIN 3.9 g/dL (3.4-5.0); CALCIUM 9.4 mg/dL (8.5-10.1); CREATININE 0.9 mg/dL (0.6-1.0); GFR 86.2; POTASSIUM 4.2 mmol/L (3.5-5.1); TOTAL BILIRUBIN 0.3 mg/dL (0.2-1.0); TOTAL PROTEIN 7.8 g/dL (6.4-8.2)
--- NOTE | 2017-08-05 10:39 | RAD ---
Indication: Right upper quadrant pain for 5 days. Technique: Grayscale, color Doppler and spectral waveform images of the abdomen obtained. Comparison: CT from 01/10/2017 Findings: Visualized pancreas is within normal limits. IVC is patent. No gallstones. No pericholecystic fluid or gallbladder wall thickening. Portal vein is patent with hepatopedal flow. CBD measures 3 mm and is within normal limits. Liver measures 15 cm in cranial, dimension without focal lesion and is normal in echogenicity. Right kidney measures 10 cm in length without hydronephrosis. Impression: No cholelithiasis or sonographic evidence of acute cholecystitis.
[2017-08-05 11:10] LABS: BILIRUBIN,URINE NEG (NEG); CLARITY,URINE HAZY; COLOR,URINE YELLOW; GLUCOSE,URINE NEG (NEG); NITRITE,URINE NEG (NEG); UROBILINOGEN,URINE 0.2 mg/dL (0.2 mg/dL)
[2017-08-05 11:11] LABS: BACTERIA,URINE FEW /HPF (0-FEW); SQUAMOUS EPITHELIAL CELL,UR FEW /LPF
[2017-08-05] MEDS ORDERED: HYDR-971 PO (11:28)
== END 2017-08-05 11:46 | disposition home or self-care (01) ==
LOC: ER 08:59
DX: R10.11 Right upper quadrant pain (principal); R07.81 Pleurodynia; F12.10 Cannabis abuse, uncomplicated
CPT/HCPCS: 36415; 71046; 76705; 80053; 81001; 83690; 85025; 87086; 96374; 99285; J1885

== ENCOUNTER 2017-10-07 00:34 | Emergency (ER) | payer OTHER ==
[~2017-10-07] VITALS: Ht 157.5 cm; Wt 61.2 kg
[2017-10-07 00:34] VITALS: BP 131/73
[~2017-10-07 00:34] MED LIST changes: +HYDR-971 PO
[2017-10-07] MEDS ORDERED: IBUPROFEN 600 MG TABLET. PO ONE (01:15)
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
== END 2017-10-07 02:30 | disposition home or self-care (01) ==
LOC: ER 00:34
DX: S50.02XA Contusion of left elbow, initial encounter (principal); S80.12XA Contusion of left lower leg, initial encounter; F15.10 Other stimulant abuse, uncomplicated; V43.62XA Car passenger injured in collision with other type car in traffic accident, initial encounter; Y93.89 Activity, other specified; Y99.8 Other external cause status; Y92.415 Exit ramp or entrance ramp of street or highway as the place of occurrence of the external cause
CPT/HCPCS: 73080; 99284

== ENCOUNTER 2017-10-10 15:59 | Emergency (ER) | payer SELFPAY ==
[~2017-10-10] VITALS: Ht 157.5 cm; Wt 61.2 kg
[2017-10-10] MEDS: KETOROLAC 60 MG/2 ML VIAL. IM ONE (16:27)
[2017-10-10] MEDS: LORazepam 1 MG TABLET PO ONE (16:30)
[2017-10-10] MEDS: HYDROcodone/APAP 5/325MG 1 TAB TABLET PO ONE (16:30)
[2017-10-10] MEDS ORDERED: NAPR275T59 PO (16:51)
[2017-10-10] MEDS ORDERED: LORA-434 PO (16:51)
[2017-10-10] MEDS ORDERED: HYDR-2758 PO (16:51)
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
[2017-10-10 17:09] VITALS: BP 116/72
--- NOTE | 2017-10-10 17:16 | RAD ---
Indication: Injury to the left elbow 1 week ago. Continued pain in the left forearm and left wrist. TECHNIQUE: 4 views of the left wrist COMPARISON: None FINDINGS: No acute fracture or dislocation. No soft tissue abnormality. No arthritic process. IMPRESSION: No acute findings. Electronically signed by: Hal Lee DO (10/10/2017 5:13 PM) [facility]
== END 2017-10-10 17:30 | disposition home or self-care (01) ==
LOC: ER 15:59
DX: S63.502A Unspecified sprain of left wrist, initial encounter (principal); S50.02XA Contusion of left elbow, initial encounter; F41.9 Anxiety disorder, unspecified; F12.10 Cannabis abuse, uncomplicated; V89.2XXA Person injured in unspecified motor-vehicle accident, traffic, initial encounter; Y93.89 Activity, other specified; Y99.8 Other external cause status; Y92.488 Other paved roadways as the place of occurrence of the external cause
CPT/HCPCS: 73110; 96372; 99284; J1885

== ENCOUNTER 2018-03-28 18:35 | Emergency (ER) | payer SELFPAY ==
[~2018-03-28] VITALS: Ht 157.5 cm; Wt 61.2 kg
[~2018-03-28 18:35] MED LIST changes: +HYDR-2758 PO; +LORA-254 PO; +NAPR275T59 PO
[2018-03-28 18:45] VITALS: BP 120/63
--- NOTE | 2018-03-28 19:27 | PHYS DOC ---
Past History Past Medical History: Bipolar, Schizophrenia Past Surgical History: Other Alcohol Use: Rarely Drug Use: Marijuana Adult General Chief Complaint Chief Complaint: HIP PAIN HPI HPI Patient is a 37-year-old -[place] female who presents to the emergency department for evaluation. She states that for the past 2 days, she has had pain on the right lateral aspect of her hip. She denies any injuries. Movement and palpation, as well as ambulation, seem to worsen her pain. There are no alleviating factors to her symptoms. She has not had any fevers or chills. She has not had any numbness or weakness. She denies any dysuria, urinary frequency or hesitancy. She also states that on her right buttock, posteriorly, there is a small subcutaneous nodule which has been present for the past 2 days and slightly tender. There is no warmth or erythema or skin lesions in this area. Review of Systems Review of Systems Constitutional: Denies fever or chills [] Eyes: Denies change in visual acuity, redness, or eye pain [] HENT: Denies nasal congestion or sore throat [] Respiratory: Denies cough or shortness of breath [] Cardiovascular: The patient denies any shortness of breath, chest pain, palpitations, or orthopnea [] GI: Denies abdominal pain, nausea, vomiting, bloody stools or diarrhea [] : Denies dysuria or hematuria. Denies possibility of . She is lesbian. LMP was 3 weeks ago [] Musculoskeletal: Denies back pain or joint pain except as noted in the history of present illness.[] Integument: Denies rash or skin lesions, except as noted in the history of present illness. [] Neurologic: Denies headache, focal weakness or sensory changes [] Endocrine: Denies polyuria or polydipsia [] All other systems were reviewed and found to be within normal limits, except as documented in this note. Allergies Allergies Allergies Coded Allergies Type Severity Reaction Last Updated Verified No Known Drug Allergies 01/10/17 No Physical Exam Physical Exam PHYSICAL EXAM: CONSTITUTIONAL: Well developed, well nourished HEAD: normocephalic, atraumatic EENT: PERRL, EOMI. Conjunctivae normal color, sclerae non-icteric; moist mucous membranes. NECK: Supple, non-tender; no meningismus. LUNGS: Lungs CTA, breathing even and unlabored. Normal air movement. HEART: Regular rate and rhythm, no murmur CHEST: No deformity; non-tender ABDOMEN: The abdomen is soft, and non-tender, no masses or bruits. EXTREM: Normal ROM; no deformity, no calf tenderness. Normal pulses palpable in all extremities. There is no pedal edema. On the right hip, there is focal tenderness to palpation at the superior aspect of the greater trochanter, which feels slightly more prominent than the greater trochanter on the left. The skin in this area appears normal, without any warmth or erythema, or any evidence of cutaneous abscess. SKIN: No rash; no diaphoresis. On the right posterior buttock, there is a 1 cm small, firm subcutaneous lesion, which is mildly tender without any skin changes , warmth, or erythema. NEURO: Alert; normal speech and cognition; CN's grossly intact; strength grossly intact without focal deficit. BACK: No CVA TTP. Current Patient Data Lab Results Laboratory Tests Test 03/28/18 19:55 White Blood Count 9.5 x10^3/uL Red Blood Count 3.84 x10^6/uL Hemoglobin 13.3 g/dL Hematocrit 38.8 % Mean Corpuscular Volume 101 fL Mean Corpuscular Hemoglobin 35 pg Mean Corpuscular Hemoglobin Concent 34 g/dL Red Cell Distribution Width 13.5 % Platelet Count 296 x10^3/uL Neutrophils (%) (Auto) 73 % Lymphocytes (%) (Auto) 17 % Monocytes (%) (Auto) 8 % Eosinophils (%) (Auto) 1 % Basophils (%) (Auto) 1 % Neutrophils # (Auto) 6.9 x10^3uL Lymphocytes # (Auto) 1.6 x10^3/uL Monocytes # (Auto) 0.8 x10^3/uL Eosinophils # (Auto) 0.1 x10^3/uL Basophils # (Auto) 0.1 x10^3/uL Sodium Level 136 mmol/L Potassium Level 4.6 mmol/L Chloride Level 99 mmol/L Carbon Dioxide Level 27 mmol/L Anion Gap 10 Blood Urea Nitrogen 14 mg/dL Creatinine 1.0 mg/dL Estimated GFR (Cockcroft-Gault) 76.3 Glucose Level 80 mg/dL Calcium Level 9.7 mg/dL C-Reactive Protein 3.8 mg/L Current Medications Medications (Trade) Dose Ordered Sig/Pato Route PRN Reason Start Time Stop Time Status Last Admin Dose Admin Ibuprofen (Motrin) 600 mg 1X ONCE PO 03/28/18 19:45 03/28/18 19:47 DC 03/28/18 20:09 EKG EKG [] Radiology/Procedures Radiology/Procedures ER physician preliminary hip/pelvis x-ray interpretation: No acute abnormality[] Course & Med Decision Making Course & Med Decision Making Pertinent Labs and Imaging studies reviewed. (See chart for details) [8:35 PM: The patient's condition remains stable. I discussed test results with the patient, the uncertain etiology of her symptoms, the need for close orthopedic follow-up for further evaluation, and return precautions. I also discussed importance of close follow-up with her PCP for the subcutaneous nodule on her right buttocks. Although not highly suspected, small infectious process is certainly in the differential I discussed using warm compresses on this area, as well as her right hip for pain control, and need for topical antibiotics as well.] Dragon Disclaimer Dragon Disclaimer This electronic medical record was generated, in whole or in part, using a voice recognition dictation system. Departure Departure: Impression: Primary Impression: Right hip pain Disposition: HOME, SELF-CARE Condition: STABLE Referrals: PCP,NO (PCP) Patient Instructions: Hip Pain Additional Instructions: Follow-up with orthopedics at [facility], . Please call tomorrow to schedule appointment. Ibuprofen 400-600 mg every 6 hours may help improve your symptoms. Applying a heating pad to the affected area may help improve your symptoms. Applying topical antibiotic ointment to the small spot on her right buttock may help improve symptoms. If this area enlarges, further evaluation and treatment, such as incision and drainage might be warranted. JARROD MENSAH MD Mar 28, 2018 19:27
[2018-03-28] MEDS ORDERED: IBUPROFEN 600 MG TABLET. PO ONE (19:45)
[2018-03-28 20:16] LABS: BASO # 0.1 x10^3/uL (0.0-0.2); BASO % 1 % (0-3); EOS # 0.1 x10^3/uL (0.0-0.7); EOS % 1 % (0-3); HEMATOCRIT 38.8 % (36.0-47.0); HEMOGLOBIN 13.3 g/dL (12.0-15.5); LYMPH # 1.6 x10^3/uL (1.0-4.8); LYMPH % 17 % (24-48); MEAN CORPUSCULAR HEMOGLOBIN 35 pg (25-35); MEAN CORPUSCULAR HGB CONC 34 g/dL (31-37); MEAN CORPUSCULAR VOLUME 101 fL (79-100); MONO # 0.8 x10^3/uL (0.0-1.1); MONO % 8 % (0-9); NEUT # 6.9 x10^3uL (1.8-7.7); NEUT % 73 % (31-73); PLATELET COUNT 296 x10^3/uL (140-400); RED BLOOD COUNT 3.84 x10^6/uL (3.50-5.40); RED CELL DISTRIBUTION WIDTH 13.5 % (11.5-14.5); WHITE BLOOD COUNT 9.5 x10^3/uL (4.0-11.0)
[2018-03-28 20:24] LABS: C REACTIVE PROTEIN 3.8 mg/L (0-3.3); CALCIUM 9.7 mg/dL (8.5-10.1); GFR 76.3
[2018-03-28 20:28] LABS: POTASSIUM 4.6 mmol/L (3.5-5.1)
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
== END 2018-03-28 20:50 | disposition home or self-care (01) ==
LOC: ER 18:35
DX: M25.551 Pain in right hip (principal); R22.2 Localized swelling, mass and lump, trunk; F31.9 Bipolar disorder, unspecified; F20.9 Schizophrenia, unspecified
CPT/HCPCS: 36415; 73502; 80048; 85025; 86140; 99285

== ENCOUNTER 2018-08-16 03:57 | Emergency (ER) | payer SELFPAY ==
[~2018-08-16] VITALS: Ht 160 cm; Wt 61.2 kg
[~2018-08-16 03:57] MED LIST changes: +HYDR-2155 PO; -HYDR-2758 PO; +HYDR-3165 PO; -HYDR-971 PO
[2018-08-16 04:03] VITALS: BP 121/72
[2018-08-16] MEDS ORDERED: PERM60CR11 TP (04:24)
[2018-08-16] MEDS ORDERED: CLOB15CR TP (04:24)
--- NOTE | 2018-08-16 04:26 | ED.ADGEN ---
Past History Past Medical History: Bipolar, Schizophrenia Past Surgical History: Other Alcohol Use: Rarely Drug Use: Marijuana Adult General Chief Complaint Chief Complaint rash HPI HPI 38 years old female presented to the emergency department with the rash on the upper extremities lower extremities around the abdomen itching mainly at night symptoms started 10 month ago no fever no chills no shortness of breath no blisters Review of Systems Review of Systems Constitutional: Denies fever or chills [] Eyes: Denies change in visual acuity, redness, or eye pain [] HENT: Denies nasal congestion or sore throat [] Respiratory: Denies cough or shortness of breath [] Cardiovascular: No additional information not addressed in HPI [] GI: Denies abdominal pain, nausea, vomiting, bloody stools or diarrhea [] : Denies dysuria or hematuria [] Musculoskeletal: Denies back pain or joint pain [] Integument: Denies rash or skin lesions [] Neurologic: Denies headache, focal weakness or sensory changes [] Endocrine: Denies polyuria or polydipsia [] All other systems were reviewed and found to be within normal limits, except as documented in this note. Allergies Allergies Allergies Coded Allergies Type Severity Reaction Last Updated Verified No Known Drug Allergies 01/10/17 No Physical Exam Physical Exam Constitutional: Well developed, well nourished, no acute distress, non-toxic appearance. [] HENT: Normocephalic, atraumatic, bilateral external ears normal, oropharynx moist, no oral exudates, nose normal. [] Eyes: PERRLA, EOMI, conjunctiva normal, no discharge. [] Neck: Normal range of motion, no tenderness, supple, no stridor. [] Cardiovascular:Heart rate regular rhythm, no murmur [] Lungs & Thorax: Bilateral breath sounds clear to auscultation [] Abdomen: Bowel sounds normal, soft, no tenderness, no masses, no pulsatile masses. [] Skin: Small papules all over the upper extremities lower extremities around the umbilicus] Back: No tenderness, no CVA tenderness. [] Extremities: No tenderness, no cyanosis, no clubbing, ROM intact, no edema. [] Neurologic: Alert and oriented X 3, normal motor function, normal sensory function, no focal deficits noted. [] Psychologic: Affect normal, judgement normal, mood normal. [] Current Patient Data Vital Signs Vital Signs Date Time Temp Pulse Resp B/P (MAP) Pulse Ox O2 Delivery O2 Flow Rate FiO2 08/16/18 04:03 98.1 80 18 100 Room Air EKG EKG [] Radiology/Procedures Radiology/Procedures [] Course & Med Decision Making Course & Med Decision Making Pertinent Labs and Imaging studies reviewed. (See chart for details) [] Final Impression Final Impression [] Problems: (1) Scabies Dragon Disclaimer Dragon Disclaimer This electronic medical record was generated, in whole or in part, using a voice recognition dictation system. RBANDT ORTIZ MD Aug 16, 2018 04:26
== END 2018-08-16 05:30 | disposition home or self-care (01) ==
LOC: ER 03:57
DX: B86 Scabies (principal); F31.9 Bipolar disorder, unspecified; F20.9 Schizophrenia, unspecified
CPT/HCPCS: 99283

== ENCOUNTER 2018-12-22 12:16 | Emergency (ER) | payer SELFPAY ==
[~2018-12-22] VITALS: Ht 160 cm; Wt 61.2 kg
[~2018-12-22 12:16] MED LIST changes: +CLOB15CR TP; +PERM60CR11 TP
[2018-12-22 12:25] VITALS: BP 118/72
--- NOTE | 2018-12-22 12:52 | RAD ---
Indication:Swelling and pain. TECHNIQUE: 3 views of the left knee COMPARISON:None FINDINGS/ impression: No acute fracture or dislocation. No arthritic changes. Small suprapatellar effusion. No erosive changes. Electronically signed by: Hal Lee DO (12/22/2018 12:49 PM) [facility]
--- NOTE | 2018-12-22 13:00 | PHYS DOC ---
Past History Past Medical History: No Pertinent History, Bipolar Past Surgical History: No Surgical History Alcohol Use: None Drug Use: Marijuana Adult General Chief Complaint Chief Complaint: KNEE INJURY [facility] HPI 38-year-old female presents with left knee swelling. Patient states that for the last 4 days she's had some swelling in the left knee. It is not painful. She does not have any particular trauma or inciting event. 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 She has a previous injury to the left knee many years ago as a teenager. It had significant swelling at that time. She did not have to have surgery. Today, she is wants to make sure she shouldn't be worried about it. She denies any other injuries or complaints. Review of Systems Review of Systems Constitutional: Denies fever or chills [] Eyes: Denies change in visual acuity, redness, or eye pain [] HENT: Denies nasal congestion or sore throat [] Respiratory: Denies cough or shortness of breath [] Cardiovascular: No additional information not addressed in HPI [] GI: Denies abdominal pain, nausea, vomiting, bloody stools or diarrhea [] : Denies dysuria or hematuria [] Musculoskeletal: Left knee pain[] Integument: Denies rash or skin lesions [] Neurologic: Denies headache, focal weakness or sensory changes [] Endocrine: Denies polyuria or polydipsia [] All other systems were reviewed and found to be within normal limits, except as documented in this note. Allergies Allergies Allergies Coded Allergies Type Severity Reaction Last Updated Verified No Known Drug Allergies 01/10/17 No Physical Exam Physical Exam Constitutional: Well developed, well nourished, no acute distress, non-toxic appearance. [] HENT: Normocephalic, atraumatic, bilateral external ears normal, oropharynx moist, no oral exudates, nose normal. [] Eyes: PERRLA, EOMI, conjunctiva normal, no discharge. [] Neck: Normal range of motion, no tenderness, supple, no stridor. [] Cardiovascular:Heart rate regular rhythm, no murmur [] Lungs & Thorax: Bilateral breath sounds clear to auscultation [] Abdomen: Bowel sounds normal, soft, no tenderness, no masses, no pulsatile masses. [] Skin: Warm, dry, no erythema, no rash. [] Back: No tenderness, no CVA tenderness. [] Extremities: Mild to moderate swelling of the suprapatellar region of the left knee. All ligaments with good and feel and normal mobility. No tenderness, ecchymosis, or deformity.[] Neurologic: Alert and oriented X 3, normal motor function, normal sensory function, no focal deficits noted. [] Psychologic: Affect normal, judgement normal, mood normal. [] Current Patient Data Vital Signs Vital Signs Date Time Temp Pulse Resp B/P (MAP) Pulse Ox O2 Delivery O2 Flow Rate FiO2 12/22/18 12:25 97.9 80 20 100 Room Air EKG EKG [] Radiology/Procedures Radiology/Procedures [] Impressions: Indication:Swelling and pain. TECHNIQUE: 3 views of the left knee COMPARISON:None FINDINGS/ impression: No acute fracture or dislocation. No arthritic changes. Small suprapatellar effusion. No erosive changes. Electronically signed by: Hal Juarez DO (12/22/2018 12:49 PM) [facility] DICTATED AND SIGNED BY: HAL JUAREZ DO DATE: 12/22/18 1249 CC: DEDRA NEWMAN DO; PCP,PEARL ~ Course & Med Decision Making Course & Med Decision Making Pertinent Labs and Imaging studies reviewed. (See chart for details) The patient's exam is unremarkable except for the swelling. Her x-ray is unremarkable. I believe she likely overworked her knee a few days ago and just has swelling as a result. She is on her feet a lot. I recommended that she rest when she can, ice the area, and use compression. If she develops a red, hot joint, she will return for drainage and cultures or follow-up with her PCP. She is stable for discharge at this time. [] Dragon Disclaimer Dragon Disclaimer This electronic medical record was generated, in whole or in part, using a voice recognition dictation system. Departure Departure: Impression: Primary Impression: Effusion, left knee Disposition: 01 HOME, SELF-CARE Condition: STABLE Referrals: PCPPEARL (PCP) Patient Instructions: Knee Effusion, [id number] DEDRA NEWMAN DO Dec 22, 2018 13:00
== END 2018-12-22 13:10 | disposition home or self-care (01) ==
LOC: ER 12:16
DX: M25.462 Effusion, left knee (principal); F31.9 Bipolar disorder, unspecified; M25.562 Pain in left knee
CPT/HCPCS: 73562; 99284

== ENCOUNTER 2020-04-23 15:06 | Emergency (ER) | payer BC ==
[~2020-04-23] VITALS: Ht 160 cm; Wt 60.0 kg
[2020-04-23 15:23] VITALS: BP 104/62
[2020-04-23] MEDS ORDERED: MORPHINE SULFATE 4 MG/ML DISP.SYRIN. IV/SQ PRN (15:30)
--- NOTE | 2020-04-23 15:34 | PHYS DOC ---
Past History Past Medical History: No Pertinent History, Bipolar (NOEMI GAINES APRN) Past Surgical History: No Surgical History (NOEMI GAINES APRN) Alcohol Use: None Drug Use: Marijuana (NOEMI GAINES APRN) Adult General Chief Complaint Chief Complaint: GI PROBLEM [facility] HPI Patient is a 39-year-old female patient with no significant medical history presenting today complaining of 9 out of 10 sharp intermittent right lower q uadrant abdominal pain that began 3 days ago. Patient denies any nausea, vomiting or diarrhea. She states she initially thought she was constipated and took MiraLAX yesterday and had a good bowel movement this morning. She states she went on the internet and googled her symptoms and it informed her she could have appendicitis . Denies any fever. She reports being Covid19 positive 10 days ago and has been on quarantine since then. She reports being in a lesbian relationship hence no chance she is . Denies any concerns for STDs. (NOEMI GAINES APRN) Review of Systems Review of Systems Constitutional: Denies fever or chills [] Eyes: Denies change in visual acuity, redness, or eye pain [] HENT: Denies nasal congestion or sore throat [] Respiratory: Denies cough or shortness of breath [] Cardiovascular: No additional information not addressed in HPI [] GI: Reports right lower quadrant abdominal pain, denies, nausea, vomiting, bloody stools or diarrhea [] : Denies dysuria or hematuria [] Musculoskeletal: Denies back pain or joint pain [] Integument: Denies rash or skin lesions [] Neurologic: Denies headache, focal weakness or sensory changes [] All other systems were reviewed and found to be within normal limits, except as documented in this note. (NOEMI GAINES APRN) Allergies Allergies Allergies Coded Allergies Type Severity Reaction Last Updated Verified No Known Drug Allergies 04/23/20 No (NOEMI GAINES APRN) Physical Exam Physical Exam Constitutional: Well developed, well nourished, no acute distress, non-toxic appearance. [] HENT: Normocephalic, atraumatic, bilateral external ears normal, oropharynx moist, no oral exudates, nose normal. [] Eyes: PERRLA, EOMI, conjunctiva normal, no discharge. [] Neck: Normal range of motion, no tenderness, supple, no stridor. [] Cardiovascular:Heart rate regular rhythm, no murmur [] Lungs & Thorax: Bilateral breath sounds clear to auscultation [] Abdomen: Bowel sounds normal, soft, mild tenderness on palpation of the right lower quadrant with negative psoas sign, negative obturator sign, negative Rovsing sign no guarding, no rebound pain or tenderness, no right upper quadrant tenderness, no masses, no pulsatile masses. [] Skin: Warm, dry, no erythema, no rash. [] Back: No tenderness, no CVA tenderness. [] Extremities: No tenderness, no cyanosis, no clubbing, ROM intact, no edema. [] Neurologic: Alert and oriented X 3, normal motor function, normal sensory function, no focal deficits noted. [] Psychologic: Affect normal, judgement normal, mood normal. [] (NOEMI GAINES APRN) EKG EKG [] (NOEMI GAINES APRN) Radiology/Procedures Radiology/Procedures []PROCEDURE: CT ABD PELV W/ IV CONTRST ONLY Study: CT abdomen/pelvis with intravenous contrast Indication: Right lower quadrant abdominal pain. Comparison: 01/10/2017 Technique: Helical CT imaging performed of the abdomen and pelvis after the intravenous administration of 75 cc contrast. Sagittal and coronal reformats were obtained. One or more of the following individualized dose reduction techniques were utilized for this examination: 1. Automated exposure control 2. Adjustment of the mA and/or kV according to patient size 3. Use of iterative reconstruction technique. Findings: No acute abnormality at the lower chest. Unremarkable liver, gallbladder, pancreas, spleen and adrenal glands. Symmetric size and enhancement of the kidneys. No hydronephrosis. Within normal limits urinary bladder given under distention. Prominence of the endometrium and heterogeneous uterine parenchyma. A small area of hypoattenuation at the uterine fundus is seen on image 23 series 3. Dermoid cyst incidentally noted on the right measuring up to 1.7 cm. Left ovarian cyst, image 25 series 3, measuring 1.8 cm typical of a dominant follicle or small cyst. Mild volume well-formed stool burden. No acute colonic abnormality. The appendix is well-visualized with the lumen containing gas. No findings of appendicitis. Nonobstructed small bowel. Within normal limits stomach. Unremarkable major vasculature. Small volume free fluid within the pelvis. No lymphadenopathy. No pneumoperitoneum. A small focus of mineralization at the right hemipelvis, image 63 series 2, is most compatible with a phlebolith and was present in 2017. No acute or aggressive osseous process. Impression: 1. In the setting of right lower quadrant pain the appendix is well-visualized and is normal. No collecting system obstruction or stone. 2. Heterogeneous uterine parenchyma and a small area of hypoattenuation at the fundus. Given patient age, the appearance of the uterus is favored mostly physiologic and the hypoattenuating focus could be a fibroid. Unchanged small dermoid cyst on the right. Simple appearing ovarian cyst on the left. Pain originating from the reproductive organs is felt unlikely but if there is concern clinically ultrasound could be performed. 3. Mild constipation. Electronically signed by: CLAYTON WHATLEY MD (04/23/2020 4:13 PM) [id number] DICTATED AND SIGNED BY: CLAYTON WHATLEY MD DATE: 04/23/20 1613 CC: EDSJ; NOEMI GAINES APRN; PCP,NO ~ (NOEMI GAINES APRN) Heart Score Risk Factors: Risk Factors: DM, Current or recent (<one month) smoker, HTN, HLP, family history of CAD, obesity. Risk Scores: Risk Factors: DM, Current or recent (<one month) smoker, HTN, HLP, family history of CAD, obesity. (NOEMI GAINES APRN) Course & Med Decision Making Course & Med Decision Making Pertinent Labs and Imaging studies reviewed. (See chart for details) This is a 39-year-old female patient presenting to the ED today complaining of right lower quadrant abdominal pain for 3 days. Negative urine hcg UA is negative CBC, CMP no acute findings. Lipase is normal. Considering the results on her CAT scan we recommended following up with the primary care doctor or ELEMENTARY EDUCATION TEACHER. We talked about management of constipation including increasing dietary fiber intake as well as water intake. Ct of the abdomen and pelvis negative for appendicitis, fibroid, dermoid cyst on the right, ovarian cyst on the left, and constipation. We talked about using dinm-vjo-eultfxm remedies including MiraLAX and mag citrate. (NOEMI GAINES APRN) Dragon Disclaimer Dragon Disclaimer This electronic medical record was generated, in whole or in part, using a voice recognition dictation system. (NOEMI GAINES APRN) Dragon Disclaimer agree with treatment plan (YOLANDA ASTUDILLO DO) Departure Departure: Impression: Primary Impression: Fibroids Additional Impressions: Dermoid cyst of right ovary Constipation Ovarian cyst, left Marijuana use Disposition: 01 DC HOME SELF CARE/HOMELESS Condition: STABLE Referrals: PCP,NO (PCP) follow up with your doctor specifically OBGYN in one week Patient Instructions: Fibroids, [id number], Ovarian Cyst Additional Instructions: You were evaluated in the emergency room, your lab work is negative for any acute findings, your CAT scan was noted for left ovarian cyst, right dermoid cyst, fibroids and constipation. Please increase your dietary fiber intake as well as your water intake to 64 ounces per day. You can take [id number] medications for constipation including MiraLAX, and magnesium citrate which I recommend you drink a bottle today. You noted to have a dermoid cyst as well as ovarian cyst and a fibroid. This needs to be followed up with an ELEMENTARY EDUCATION TEACHER. Problem Qualifiers Additional Impressions: Constipation Constipation type: unspecified constipation type Qualified Codes: K59.00 - Constipation, unspecified NOEMI GAINES APRN Apr 23, 2020 15:34 YOLANDA ASTUDILLO DO Apr 23, 2020 17:37
[2020-04-23] MEDS ORDERED: CONTRAST GIVEN. MC PRN (15:45)
[2020-04-23] MEDS ORDERED: ONDANSETRON PF 4 MG/2 ML VIAL. IVP ONE (15:45)
[2020-04-23 15:58] LABS: BARBITURATES NEG (NEG); BENZODIAZEPINES NEG (NEG); CANNABINOIDS POS (NEG); COCAINE NEG (NEG); METHADONE NEG (NEG); OPIATES NEG (NEG); PHENCYCLIDINE NEG (NEG)
[2020-04-23] MEDS ORDERED: IOHEXOL 350 MG/ML 100 ML VIAL. IV ONE (16:00)
[2020-04-23] MEDS ORDERED: IOHEXOL 300 MG/ML 75 ML VIAL. IV ONE (16:00)
[2020-04-23 16:03] LABS: AMPHETAMINE/METHAMPHETAMINE NEG (NEG)
[2020-04-23 16:05] LABS: BILIRUBIN,URINE NEG (NEG); CLARITY,URINE CLEAR; COLOR,URINE YELLOW; GLUCOSE,URINE NEG (NEG)
[2020-04-23 16:06] LABS: BACTERIA,URINE 0 /HPF (0-FEW); NITRITE,URINE NEG (NEG); RBC,URINE RARE /HPF (0-2); SQUAMOUS EPITHELIAL CELL,UR MANY /LPF; WBC,URINE 0 /HPF (0-4)
--- NOTE | 2020-04-23 16:16 | RAD ---
Study: CT abdomen/pelvis with intravenous contrast Indication: Right lower quadrant abdominal pain. Comparison: 01/10/2017 Technique: Helical CT imaging performed of the abdomen and pelvis after the intravenous administration of 75 cc contrast. Sagittal and coronal reformats were obtained. One or more of the following individualized dose reduction techniques were utilized for this examination: 1. Automated exposure control 2. Adjustment of the mA and/or kV according to patient size 3. Use of iterative reconstruction technique. Findings: No acute abnormality at the lower chest. Unremarkable liver, gallbladder, pancreas, spleen and adrenal glands. Symmetric size and enhancement of the kidneys. No hydronephrosis. Within normal limits urinary bladder given under distention. Prominence of the endometrium and heterogeneous uterine parenchyma. A small area of hypoattenuation at the uterine fundus is seen on image 23 series 3. Dermoid cyst incidentally noted on the right measuring up to 1.7 cm. Left ovarian cyst, image 25 series 3, measuring 1.8 cm typical of a dominant follicle or small cyst. Mild volume well-formed stool burden. No acute colonic abnormality. The appendix is well-visualized with the lumen containing gas. No findings of appendicitis. Nonobstructed small bowel. Within normal limits stomach. Unremarkable major vasculature. Small volume free fluid within the pelvis. No lymphadenopathy. No pneumoperitoneum. A small focus of mineralization at the right hemipelvis, image 63 series 2, is most compatible with a phlebolith and was present in 2017. No acute or aggressive osseous process. Impression: 1. In the setting of right lower quadrant pain the appendix is well-visualized and is normal. No collecting system obstruction or stone. 2. Heterogeneous uterine parenchyma and a small area of hypoattenuation at the fundus. Given patient age, the appearance of the uterus is favored mostly physiologic and the hypoattenuating focus could be a fibroid. Unchanged small dermoid cyst on the right. Simple appearing ovarian cyst on the left. Pain originating from the reproductive organs is felt unlikely but if there is concern clinically ultrasound could be performed. 3. Mild constipation. Electronically signed by: CLAYTON WHATLEY MD (04/23/2020 4:13 PM) [id number]
[2020-04-23 16:28] LABS: BASO % 0 % (0-3); EOS # 0.1 x10^3/uL (0.0-0.7); EOS % 1 % (0-3); HEMATOCRIT 35.6 % (36.0-47.0); LYMPH # 1.8 x10^3/uL (1.0-4.8); LYMPH % 27 % (24-48); MEAN CORPUSCULAR HEMOGLOBIN 34 pg (25-35); MEAN CORPUSCULAR HGB CONC 34 g/dL (31-37); MEAN CORPUSCULAR VOLUME 101 fL (79-100); MONO # 0.8 x10^3/uL (0.0-1.1); MONO % 12 % (0-9); NEUT # 3.9 x10^3uL (1.8-7.7); NEUT % 60 % (31-73); PLATELET COUNT 342 x10^3/uL (140-400); RED BLOOD COUNT 3.51 x10^6/uL (3.50-5.40); WHITE BLOOD COUNT 6.6 x10^3/uL (4.0-11.0)
[2020-04-23 16:34] LABS: CALCIUM 9.8 mg/dL (8.5-10.1); CREATININE 1.1 mg/dL (0.6-1.0); GFR 67.6; POTASSIUM 3.9 mmol/L (3.5-5.1)
[2020-04-23 16:41] LABS: ALBUMIN 3.7 g/dL (3.4-5.0); TOTAL BILIRUBIN 0.2 mg/dL (0.2-1.0); TOTAL PROTEIN 7.3 g/dL (6.4-8.2)
== END 2020-04-23 17:08 | disposition home or self-care (01) ==
LOC: ER 15:06
DX: D27.0 Benign neoplasm of right ovary (principal); K59.00 Constipation, unspecified; F12.90 Cannabis use, unspecified, uncomplicated; F31.9 Bipolar disorder, unspecified
CPT/HCPCS: 36415; 74177; 80053; 80307; 81001; 81025; 83690; 85025; 96374; 96375; 99285; J2270; J2405; Q9967

== ENCOUNTER 2021-07-24 16:58 | Emergency (ER) | payer BC ==
[~2021-07-24] VITALS: Ht 160 cm; Wt 59.0 kg
[2021-07-24 17:05] VITALS: BP 130/72
[2021-07-24] MEDS ORDERED: CYCL10TA19 PO (18:23)
--- NOTE | 2021-07-24 18:23 | PHYS DOC ---
Past History Past Medical History: Other Additional Past Medical Histor: ptsd (JOSEFA VAUGHAN APRN) Past Surgical History: Other Additional Past Surgical Histo: hernia repair (JOSEFA VAUGHAN APRN) Alcohol Use: None Drug Use: Marijuana Social History Narrative: occasional THC (JOSEFA VAUGHAN APRN) General Adult EDM: Chief Complaint: UPPER EXTREMITY PAIN HPI: HPI: Patient is a 41-year-old female who presents with bilateral upper extremity pain. 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 Patient reports she is taken Aleve and used Aspercreme with some relief. Patient has full range of motion and sensation is intact. Denies injury or any other complaints. Denies medical history. (JOSEFA VAUGHAN APRN) Review of Systems: Review of Systems: ROS At least 10 ROS systems have been reviewed and are negative except as documented in the HPI. General: Negative except as outlined in HPI above. Skin: Negative except as outlined in HPI above. HEENT: Negative except as outlined in HPI above. Neck: Negative except as outlined in HPI above. Respiratory: Negative except as outlined in HPI above.. Cardiovascular: Negative except as outlined in HPI above. Abdomen: Negative except as outlined in HPI above. : Negative except as outlined in HPI above. Back/MSK: Negative except as outlined in HPI above. Neuro: Negative except as outlined in HPI above. Psych: Negative except as outlined in HPI above. (JOSEFA VAUGHAN APRN) Allergies: Allergies: Allergies Coded Allergies Type Severity Reaction Last Updated Verified No Known Drug Allergies 07/24/21 No (JOSEFA VAUGHAN APRN) Physical Exam: PE: Constitutional: Well developed, well nourished, no acute distress, non-toxic appearance. [] HENT: Normocephalic, atraumatic, bilateral external ears normal, oropharynx moist, no oral exudates, nose normal. [] Eyes: PERRLA, EOMI, conjunctiva normal, no discharge. [] Neck: Normal range of motion, no tenderness, supple, no stridor. [] Cardiovascular:Heart rate regular rhythm, no murmur [] Lungs & Thorax: Bilateral breath sounds clear to auscultation [] Abdomen: Bowel sounds normal, soft, no tenderness, no masses, no pulsatile masses. [] Skin: Warm, dry, no erythema, no rash. [] Back: No tenderness, no CVA tenderness. [] Extremities: Bilateral arm tenderness, ROM intact, no edema. [] Neurologic: Alert and oriented X 3, normal motor function, normal sensory function, no focal deficits noted. [] Psychologic: Affect normal, judgement normal, mood normal. [] (JOSEFA VAUGHAN APRN) Current Patient Data: Vital Signs: Vital Signs Date Time Temp Pulse Resp B/P (MAP) Pulse Ox O2 Delivery O2 Flow Rate FiO2 07/24/21 17:05 98.1 88 16 130/72 (91) 100 (JOSEFA VAUGHAN APRN) EKG: EKG: [] (JOSEFA VAUGHAN APRN) Radiology/Procedures: Radiology/Procedures: [] (JOSEFA VAUGHAN APRN) Heart Score: C/O Chest Pain: No Risk Factors: Risk Factors: DM, Current or recent (<one month) smoker, HTN, HLP, family history of CAD, obesity. Risk Scores: Score 0 - 3: 2.5% MACE over next 6 weeks - Discharge Home Score 4 - 6: 20.3% MACE over next 6 weeks - Admit for Clinical Observation Score 7 - 10: 72.7% MACE over next 6 weeks - Early Invasive Strategies (JOSEFA VAUGHAN APRN) Course & Med Decision Making: Course & Med Decision Making Pertinent Labs and Imaging studies reviewed. (See chart for details) [] 41-year-old female presents with bilateral upper extremity pain. Patient works for [employer] and lifts heavy boxes and moves them all day. Advised patient to take ibuprofen three times a day. Use ice to the area. Patient sent with a prescription for Flexeril. Advised patient to rest for the next 2 days to see if it improves symptoms. Patient is requesting a work note. Discussed with patient follow-up with PCP if pain does not improve. (JOSEFA VAUGHAN APRN) Course & Med Decision Making I was the Attending physician on the above date of service of this patient. This patient was evaluated, examined, treated, and dispositioned from the emergency department by the mid-level practitioner. Although I was working at the time , no assistance was requested. Electronically signed, Oscar Badillo DO (OSCAR BADILLO DO) Nima Disclaimer: Nima Disclaimer: This electronic medical record was generated, in whole or in part, using a voice recognition dictation system. (JOSEFA VAUGHAN APRN) Departure Departure: Impression: Primary Impression: Pain in both upper extremities Disposition: HOME / SELF CARE / HOMELESS Condition: STABLE Referrals: KYLE OLIVAREZ (PCP) Patient Instructions: Shoulder Pain, [id number] Additional Instructions: You are seen in the emergency room for bilateral shoulder pain. Take ibuprofen 600 mg, three times a day. Make sure you are drinking plenty of fluids. Also sending you with a prescription for Flexeril. Try and take it easy the next couple of days. On Monday with a work note. Can also use ice to the area to help with discomfort. Follow-up with your PCP if symptoms do not improve. EMERGENCY DEPARTMENT GENERAL DISCHARGE INSTRUCTIONS Thank you for coming to [facility] (ED) today and trusting us with you care. We trust that you had a positivie experience in our Emergency Department. If you wish to speak to the department management, you may call the director at [phone]. YOUR FOLLOW UP INSTRUCTIONS ARE FOLLOWS: 1. Do you have a private Doctor? If you do not have a private doctor, please ask for a resource list of physicians or clinics that may be able to assist you with follow up care. 2. The Emergency Physician has interpreted your x-rays. The X-Ray specialist will also review them. If there is a change in the findings, you will be notified in 48 hours when at all possible. 3. A lab test or culture has been done, your results will be reviewed and you will be notified if you need a change in treatment. ADDITIONAL INSTRUCTIONS AND INFORMATION: 1. Your care today has been supervised by a physician who is specially trained in emergency care. Many problems require more than one evaluation for a complete diagnosis and treatment. We recommend that you schedule your follow up appointment as recommended to ensure complete treatment of you illness or injury. If you are unable to obtain follow up care and continue to have a problem, or if your condition worsens, we recommend that you return to the ED. 2. We are not able to safely determine your condition over the phone nor are we able to give sound medical advice over the phone. For these safety reasons, if you call for medical advice we will ask you to come to the ED for further evaluation. 3. If you have any questions regarding these discharge instructions please call the ED at [phone]. SAFETY INFORMATION: In the interest of safety, wellness, and injury prevention; we encourage you to wear your sealbelt, if you smoke; quite smoking, and we encourage family to use a protective helmet for bicycling and other sporting events that present an increased risk for head injury. IF YOUR SYMPTOMS WORSEN OR NEW SYMPTOMS DEVELOP, OR YOU HAVE CONCERNS ABOUT YOUR CONDITION; OR IF YOUR CONDITION WORSENS WHILE YOU ARE WAITING FOR YOUR FOLLOW UP APPOINTMENT; EITHER CONTACT YOUR PRIMARY CARE DOCTOR, THE PHYSICIAN WHOSE NAME AND NUMBER YOU WERE GIVEN, OR RETURN TO THE ED IMMEDIATELY. Scripts Cyclobenzaprine Hcl (CYCLOBENZAPRINE HCL) 10 Mg Tablet 1 TAB PO TID PRN for PAIN for 10 Days, #30 TAB 0 Refills Prov: JOSEFA VAUGHAN APRN 07/24/21 JOSEFA VAUGHAN APRN Jul 24, 2021 18:23 OSCAR BADILLO DO Jul 25, 2021 18:57
[2021-07-24] MEDS ORDERED: CYCLOBENZAPRINE 10 MG TABLET. PO ONE (18:45)
== END 2021-07-24 18:45 | disposition home or self-care (01) ==
LOC: ER 16:58
DX: M79.602 Pain in left arm (principal); M79.601 Pain in right arm; F12.10 Cannabis abuse, uncomplicated
CPT/HCPCS: 99283-25